=== PATIENT | male | born 1945 | race African-American/Black ===

== ENCOUNTER 2025-04-15 11:05 | Inpatient (IN) ==
[2025-04-15] MEDS ORDERED: KETAMINE HCL ONE ×2 (12:23)
[2025-04-15] MEDS ORDERED: PRECEDEX INJ VIAL ONE (12:23)
[2025-04-15] MEDS: OMNIPAQUE 350 mg/mL 50 mL BTL 50 ML ONE (14:44)
[2025-04-15] MEDS: OMNIPAQUE 350 mg/mL 100 mL BTL 100 ML ONE (14:44)
[2025-04-15 15:50] LABS: MEAN PLATELET VOLUME 7.5 fL (7.4-11.0); RED CELL DISTRIBUTION WIDTH 14.6 % (11.6-16.5)
[2025-04-15 15:54] VITALS: BMI 25.3
[2025-04-15] MEDS: LR 1,000 ML IV 1,000 ML IV SCH (15:58)
[2025-04-15 16:01] LABS: COR NA(FOR HYPERGLY) 140 mmol/L (136-145); CREATININE 1.25 mg/dL (0.70-1.30); eGFR NON BLACK RACES 59 (>60)
[2025-04-15] MEDS: OMNIPAQUE 350 mg/mL 100 mL BTL IVP ONE (17:05)
[2025-04-15] MEDS: OMNIPAQUE 350 mg/mL 50 mL BTL IVP ONE (17:05)
[2025-04-15] MEDS ORDERED: GLUCAGEN SC PRN (19:38)
--- NOTE | 2025-04-15 19:39 | CT ---
EXAM: CT ANGIOGRAM ABDOMEN AND PELVIS WITH BILATERAL LOWER EXTREMITY RUNOFF WITH AND WITHOUT CONTRAST (3D) HISTORY: occlusion to right lower extemity; COMPARISON: CTA dated February 22, 2025. TECHNIQUE: Axial CT images were obtained through the abdomen, pelvis, and bilateral lower extremities to the level of the toes both before after the intravenous administration of contrast. Coronal and sagittal reformatted images were included. 3D reconstructions were performed with concurrent physician supervision at a separate independent workstation and MIP images were also performed. All CT scans at this facility use dose modulation, iterative reconstruction, and/or weight based dosing when appropriate to reduce radiation dose to as low as reasonably achievable. FINDINGS: VASCULAR FINDINGS: Aorta is normal in course and caliber without evidence of aneurysm, dissection, or other acute pathology. Celiac, superior mesenteric, and renal arteries are all widely patent. Soft plaquing of the left common iliac artery producing less than 50% short-segment stenosis, stable finding. Right common iliac artery is patent. Mild atherosclerotic changes of each external iliac artery without significant stenosis. Right lower extremity: Atherosclerotic plaquing of the SURVEILLANCE DIRECTOR otherwise appears patent.. There has a stent along the entire course of the right SFA which is occluded, this is unchanged from the prior CTA. Right profunda femoris artery is patent. The right popliteal artery appears to be occluded and this is unchanged from the prior CTA. Tibioperoneal trunk appears to be occluded and this is unchanged from prior study. Anterior tibial artery is occluded along its entire length, unchanged from prior exam. Posterior tibial artery demonstrates flow to the just above the level of the ankle joint and then appears to be occluded, which is an interval change from the prior CTA, however there is evidence of flow within its distal branches at the level of the hindfoot. Peroneal artery demonstrates flow to the level of the ankle. Flow is not visualized within the dorsalis pedis artery, unchanged from the prior exam. Left lower extremity: Technical note: Note that the left knee arthroplasty produces streak artifact limiting some of the images through the level of the knee. Atherosclerotic plaquing of the SURVEILLANCE DIRECTOR otherwise appears patent. Redemonstrated is occlusion of the left SFA along its entire length. Redemonstrated is a bypass graft of the left SFA that is patent and ties into the distal left SFA which is also patent. Popliteal artery is patent. Tibioperoneal trunk is patent. Redemonstrated is occlusion of the anterior tibial artery. There is flow within the posterior tibial artery to the level of the ankle that continues into the level of the hindfoot. Peroneal artery appears patent to just above the level of the ankle, unchanged just above the ankle from prior. No flow is identified within the dorsalis pedis artery, unchanged from prior. NON VASCULAR FINDINGS: LOWER THORAX: Normal ABDOMEN: LIVER: Normal GALLBLADDER: Sludge or stones within the gallbladder lumen. No CT evidence that would suggest cholecystitis. SPLEEN: Normal PANCREAS: Normal KIDNEYS: Normal ADRENAL GLANDS: Normal GI TRACT: Normal course and caliber LYMPH NODES: No enlarged nodes PERITONEUM / RETROPERITONEUM: No free gas PELVIS: BLADDER: Normal GENITALS: Normal BONES: No evidence for acute osseous findings. IMPRESSION: Right lower extremity: Right posterior tibial artery demonstrates flow to the just above the level of the ankle joint and then appears to be occluded, which is an interval change from the prior CTA, however there is evidence of flow within its distal branches at the level of the hindfoot. Redemonstrated is occlusion of the right SFA and right popliteal artery. Redemonstrated is occlusion of the right anterior tibial artery. No evidence for flow within the right dorsalis pedis artery, unchanged from prior. Left lower extremity: Redemonstrated is occlusion of the left SFA along its entire length. Redemonstrated is a bypass graft of the left SFA that is patent and ties into the distal left SFA which is also patent. Redemonstrated is occlusion of the anterior tibial artery. There is flow within the left posterior tibial artery to the level of the ankle that continues into the hindfoot. Left peroneal artery appears patent to just above the level of the ankle, unchanged just above the ankle from prior. No flow is identified within the left dorsalis pedis artery, unchanged from prior. THIS IS AN ELECTRONICALLY VERIFIED FINAL REPORT 04/15/2025 7:36 PM - Electronically signed by Yan Rosas DO
[2025-04-15] MEDS ORDERED: SNACK - Diabetic Appropriate PO SCH (20:00)
[2025-04-15] MEDS: HIBICLENS WASH EXT ONE (20:58)
[2025-04-15] MEDS: ZETIA TAB 10 MG PO SCH (20:58)
[2025-04-15] MEDS: COLACE CAP 100 MG PO SCH (20:58)
[2025-04-15] MEDS: XALATAN EACHEYE SCH (20:58)
[2025-04-15] MEDS: CRESTOR TAB 10 MG PO SCH (20:58)
[2025-04-15] MEDS ORDERED: XARELTO PO SCH (21:00)
[2025-04-15] MEDS: LANTUS SC SCH (21:00)
[2025-04-15] MEDS: NORCO 5/325 MG TAB PO PRN (22:31)
[2025-04-16] MEDS: LOVENOX INJ 80 MG SYR SC ONE (00:11)
[2025-04-16 06:11] LABS: MEAN PLATELET VOLUME 6.8 fL (7.4-11.0); RED CELL DISTRIBUTION WIDTH 14.5 % (11.6-16.5)
[2025-04-16 06:24] LABS: COR CA(FOR HYPOALB) 10.1 mg/dL (8.5-10.1); COR NA(FOR HYPERGLY) 141 mmol/L (136-145); CREATININE 1.10 mg/dL (0.70-1.30); eGFR NON BLACK RACES > 60 (>60)
--- NOTE | 2025-04-16 08:06 | DR.H&P ---
H&P History & Physical for Day of: H&P Date: 04/15/25 Chief Complaint Chief Complaint: rest pain right leg History of Present Illness History of Present Illness: 79-year-old male with history of peripheral vascular disease who has a left femoral popliteal bypass graft that required intervention of the tibioperoneal trunk in the past. Patient has multiple stents of the right superficial femoral artery and last week underwent relining of all the stents with angioplasty of the right tibioperoneal trunk and angioplasty of takeoff of the right posterior tibial artery. Patient presented to the emergency room in [place], [place] complaining of pain and ultrasound was consistent with possible thrombosis of the knee but newly placed stents. Patient is supposed to be on blood thinner and aspirin I am unsure whether he is taking it. Patient is transferred here for care and CT angiogram shows occlusion/thrombosis of the right superficial femoral artery stents as well as the popliteal artery and the tibioperoneal trunk on the side. Past Medical History Past Medical History: Arthritis, Diabetes, Dyslipidemia and Hypertension Past Surgical History Surgical History: Ortho Surgery Family History Family Medical History: Diabetes Mellitus, Cancer and Coronary Artery Disease Social History Does patient currently use any type of tobacco product: No Alcohol Use: None Drug Use: None Medications Home Medications: Home Medications Medication Instructions Recorded Confirmed Type amlodipine 10 mg tablet 10 mg PO QDAY 04/15/2504/15 History aspirin 81 mg chewable tablet 81 mg PO QDAY 04/15/25 1 History castor oil 1 ea miscellaneous QHS 04/1504/15/25 History ezetimibe 10 mg tablet (Zetia) 10 mg PO QHS 04/15/25 1 History glucagon HCl 1 mg solution for 1 mg subcut Q20M PRN 04/15/25 History injection hydrocodone 5 mg-acetaminophen 325 2 tab PO TID 04/15/25 History mg tablet insulin glargine 100 unit/mL (3 35 unit subcut QHS 04/15/25 History mL) subcutaneous pen (Lantus Solostar U-100 Insulin) latanoprost 0.005 % eye drops 1 drp ophthalmic (eye) Q PM 04/15/25 04/15/25 History lidocaine 4 % topical patch 1 patch topical QDAY PRN 1 04/15/25 History (Lidocaine Pain Relief) lisinopril 20 mg tablet 20 mg PO QDAY 04/15/2504/15 History metformin 500 mg tablet 500 mg PO BID 04/15/2504/15 History metoprolol succinate 25 mg 25 mg PO QDAY 04/15/2503/28 History tablet,extended release 24 hr (Toprol XL) rivaroxaban 2.5 mg tablet (Xarelto) 2.5 mg PO BID 03/2804/15/25 History rosuvastatin 20 mg tablet 20 mg PO QHS 04/15/25 History semaglutide 0.25 mg or 0.5 mg (2 0.25 mg subcut QWEEK 04/15/25 04/15/25 History mg/1.5 mL) subcutaneous pen injector (Ozempic) Allergies Allergies Allergy/AdvReac Type Severity Reaction Status Date / Time codeine Allergy Verified 04/15/25 13:11 Labs 04/16/25 05:36 04/16/25 05:36 Labs: Laboratory WBC 9.0 X10^3/uL (3.6-10.0) 04/15/25 15:38 RBC 3.61 X10^6/uL (4.7-6.0) L 04/15/25 15:38 Hgb 12.1 g/dL (13.5-18.0) L 04/15/25 15:38 Hct 34.7 % (42.0-54.0) L 04/15/25 15:38 MCV 96.3 fL (80.0-100.0) 04/15/25 15:38 MCH 33.5 pg (27.0-34.0) 04/15/25 15:38 MCHC 34.8 g/dL (33.0-35.0) 04/15/25 15:38 RDW 14.6 % (11.6-16.5) 04/15/25 15:38 Plt Count 135 X10^3/uL (150.0-450.0) L 04/15/25 15:38 MPV 7.5 fL (7.4-11.0) 04/15/25 15:38 Neut % (Auto) 78.3 % (42.0-75.0) H 04/15/25 15:38 Lymph % (Auto) 15.7 % (21.0-51.0) L 04/15/25 15:38 [place] % (Auto) 5.3 % (0.0-13.0) 04/15/25 15:38 Eos % (Auto) 0.1 % (0.9-2.9) L 04/15/25 15:38 Baso % (Auto) 0.6 % (0.2-1.0) 04/15/25 15:38 Neut # (Auto) 7.0 x10^3/uL (2.2-4.8) H 04/15/25 15:38 Lymph # (Auto) 1.4 X10^3/uL (1.3-2.9) 04/15/25 15:38 [place] # (Auto) 0.5 x10^3/uL (0.3-0.8) 04/15/25 15:38 Eos # (Auto) 0.0 x10^3/uL (0.0-0.2) 04/15/25 15:38 Baso # (Auto) 0.1 X10^3/uL (0.0-0.1) 04/15/25 15:38 Absolute Nucleated RBC 0.1 /100WBC 04/15/25 15:38 Sodium 138 mmol/L (136-145) 04/15/25 15:38 Corrected Sodium 140 mmol/L (136-145) 04/15/25 15:38 Potassium 4.8 mmol/L (3.5-5.1) 04/15/25 15:38 Chloride 103 mmol/L (98-107) 04/15/25 15:38 Carbon Dioxide 22.7 mmol/L (21-32) 04/15/25 15:38 BUN 20 mg/dL (7-18) H 04/15/25 15:38 Creatinine 1.25 mg/dL (0.70-1.30) 04/15/25 15:38 Est GFR (MDRD) Af Amer > 60 (>60) 04/15/25 15:38 Est GFR (MDRD) Non-Af 59 (>60) 04/15/25 15:38 Glucose 174 mg/dL (65-99) H 04/15/25 15:38 POC Glucose (mg/dL) 159 mg/dL (65-99) H 04/15/25 19:32 Calcium 9.7 mg/dL (8.5-10.1) 04/15/25 15:38 Corrected Calcium TNP 04/15/25 15:38 Total Bilirubin 0.50 mg/dL (0.2-1.0) 04/15/25 15:38 AST 28 Units/L (15-37) 04/15/25 15:38 ALT 33 Units/L (12-78) 04/15/25 15:38 Alkaline Phosphatase 106 Units/L (46-116) 04/15/25 15:38 Total Protein 7.0 g/dL (6.4-8.2) 04/15/25 15:38 Albumin 3.6 g/dL (3.4-5.0) 04/15/25 15:38 Globulin 3.4 g/dL (2.5-4.5) 04/15/25 15:38 Albumin/Globulin Ratio 1.1 Ratio (1.1-2.1) 04/15/25 15:38 Review of Systems Constitutional: See HPI Eyes: No Symptoms Reported ENT: No Symptoms Reported Respiratory: No Symptoms Reported Cardiovascular: No Symptoms Reported Gastrointestinal: No Symptoms Reported Genitourinary: No Symptoms Reported Musculoskeletal: No Symptoms Reported Skin: No Symptoms Reported Neurological: No Symptoms Reported Physical Exam Vital Signs: Vital Signs Temperature 97.8 F Temperature 98.3 F Pulse Rate [Radial] 93 Pulse Rate [Radial] 86 Respiratory Rate 18 Respiratory Rate 18 Respiratory Rate 14 Blood Pressure [Right Arm] 126/61 Blood Pressure [Right Arm] 140/63 O2 Sat by Pulse Oximetry 100 O2 Sat by Pulse Oximetry 98 Oriented: Normal, Time, Person and Place Eyes: Normal Ear: Normal Nose: Normal Throat: Normal Respiratory: Clear Throughout Cardiovascular: Normal and Other (Palpable femoral pulses bilaterally. Absent pulses of the right ankle and foot. Patient moves the foot well on the right side. Good Doppler signals in the distal pulses of the left) : Normal Auscultation: Bowel Sounds: Normal Palpation: Normal Tenderness: Normal Skin: Normal Musculoskeletal: Normal Psychiatric: Normal Mood Description: Calm Affect: Normal Speech Pattern: Clear and Appropriate Assessment/Plan (1) Atherosclerosis of [place] arteries of extremities with rest pain, right leg: Status: Acute Plan: Patient started on therapeutic Lovenox. Patient will be taken the operating suite tomorrow for updated arteriogram and possible thrombectomy of the right superficial femoral artery stents, possible placement of thrombolytic catheter. (2) Atherosclerosis of [place] arteries of extremities with rest pain, left leg: Status: Acute Plan: Left leg is stable at this time (3) Type 2 diabetes mellitus without complications: Status: Acute Plan: Sliding scale insulin for now (4) Essential (primary) hypertension: Status: Acute Plan: Home medications (5) Hyperlipidemia: Status: Acute Plan: Home medications (6) Personal history of transient ischemic attack (TIA), and cerebral infarction without residual deficits: Status: Acute Plan: Stable Review H&P Reviewed: Yes Patient was examined?: Yes
[2025-04-16] MEDS: NORVASC TAB 10 MG PO SCH (08:36)
[2025-04-16] MEDS: ZESTRIL TAB 20 MG PO SCH (08:36)
[2025-04-16] MEDS: TOPROL XL PO SCH (08:36)
--- NOTE | 2025-04-16 09:26 | EKG ---
Test Reason : surgical clearance Blood Pressure : */* mmHG Vent. Rate : 82 BPM Atrial Rate : 82 BPM P-R Int : 114 ms QRS Dur : 88 ms QT Int : 388 ms P-R-T Axes : 31 -3 46 degrees QTc Int : 453 ms Normal sinus rhythm Normal ECG No previous ECGs available Confirmed by Jamari Fairchild MD ([id number]) on 04/17/2025 7:23:16 AM Referred By: Confirmed By: Jamari Fairchild MD
[2025-04-16] MEDS: ASPIRIN EC 81 MG PO SCH (10:53)
[2025-04-16] MEDS: FENTANYL VIAL INJ 100 mcg ONE (13:19)
[2025-04-16] MEDS: DIPRIVAN VIAL 20 ML ONE ×2 (13:19→15:11)
[2025-04-16] MEDS: OFIRMEV IV 1000 MG VIAL 1,000 MG/100 ML VIAL IV ONE (13:19)
[2025-04-16] MEDS: VERSED ONE (13:19)
[2025-04-16] MEDS: HEPARIN SODIUM INJ 5000 UNITS ONE (13:23)
[2025-04-16] MEDS: ZOFRAN INJ 4 MG VIAL ONE (13:23)
[2025-04-16] MEDS: ANCEF VIAL 1 GRAM ONE (13:55)
[2025-04-16] MEDS: NS 1,000 ML IV 1,000 ML ONE ×2 (13:55→15:37)
[2025-04-16] MEDS: NS 100 ML IV 100 ML ONE ×2 (13:56→15:51)
[2025-04-16] MEDS: NS 1,000 ML IV 700 ML IV PRN (14:17)
[2025-04-16] MEDS: VERSED IVP PRN (14:18)
[2025-04-16] MEDS: ZOFRAN INJ 4 MG VIAL IVP PRN (14:18)
[2025-04-16] MEDS: ANCEF VIAL 1 GRAM IV PRN (14:23)
[2025-04-16] MEDS: KETAMINE HCL IV PRN (14:25)
[2025-04-16] MEDS: PRECEDEX INJ VIAL IVP PRN (14:25)
[2025-04-16] MEDS: DIPRIVAN VIAL 250 ML IVP PRN (14:25)
[2025-04-16] MEDS: FENTANYL VIAL INJ 100 mcg IVP PRN (14:28)
[2025-04-16] MEDS: VISIPAQUE 100 ML ONE (14:44)
[2025-04-16] MEDS: HEPARIN 1,000 UNIT/500 ML-NS 3,000 UNIT/1,500 ML IV.SOLN ONE (14:44)
[2025-04-16] MEDS: MARCAINE 0.5% ONE (14:44)
[2025-04-16] MEDS: VISIPAQUE 50 ML ONE (14:44)
[2025-04-16] MEDS: OFIRMEV IV 1000 MG VIAL 1,000 MG/100 ML VIAL IV PRN (14:45)
[2025-04-16] MEDS: HEPARIN SODIUM INJ 5000 UNITS IVP PRN (14:48)
[2025-04-16] MEDS: NEO-SYNEPHRINE INJ IVP PRN (15:20)
[2025-04-16] MEDS: ACTIVASE CATHFLO ONE (15:35)
[2025-04-16] MEDS: ACTIVASE CATHFLO 12 MG in NS 250 ML IV 228 ML IV SCH (15:36)
[2025-04-16] MEDS: PATIENT'S HOME MEDICATION TOP SCH (15:51)
[2025-04-16] MEDS: ZESTRIL TAB 20 MG ONE (15:52)
[2025-04-16] MEDS: NEO-SYNEPHRINE INJ ONE (15:52)
--- NOTE | 2025-04-16 16:22 | OR.IMMED ---
IMMEDIATE POST-OP NOTE Immediate Post-Op Note Date of surgery/procedure: 04/16/25 Pre-Op Diagnosis: Thrombosis of right superficial femoral artery stents Post-Op Diagnosis: Same, see findings below Description of Procedure: Aortogram, arteriogram lower extremity, placement of EKOS catheter across all occluded right superficial femoral artery stents for 24 hours of tPA using EKOS device Surgeon/Construction Trench Digger: Luis Richey MD, FACS Findings: Occluded right superficial femoral artery stents. Peroneal artery now without opacification ,no good opacification of the posterior tibial artery, tibioperoneal trunk does opacify Estimated Blood Loss: <50 cc Complications: none Progress Notes: To CCU for continued tPA infusion using EKOS catheter
[2025-04-16] MEDS: ACTIVASE CATHFLO 12 MG in NS 250 ML IV 228 ML INTRACATH ONE ×2 (16:24→16:27)
[2025-04-16] MEDS: NS 500 ML IV 500 ML IV ONE (16:24)
[2025-04-16] MEDS: SNACK - Diabetic Appropriate PO SCH (16:48)
[2025-04-16] MEDS: PHARMACY CONSULT EKOS LOVENOX XX SCH (17:09)
[2025-04-16] MEDS: NS 500 ML IV 500 ML IV SCH (17:09)
[2025-04-16 17:26] LABS: MEAN PLATELET VOLUME 6.6 fL (7.4-11.0); RED CELL DISTRIBUTION WIDTH 14.5 % (11.6-16.5)
[2025-04-16] MEDS: DILAUDID INJ IVP PRN (17:27)
[2025-04-16] MEDS: LOVENOX INJ 80 MG SYR SC SCH (17:27)
[2025-04-16] MEDS: NovoLIN R (or HumuLIN R) SUBCUT PRN (20:47)
[2025-04-16 23:08] LABS: MEAN PLATELET VOLUME 6.4 fL (7.4-11.0); RED CELL DISTRIBUTION WIDTH 14.5 % (11.6-16.5)
[2025-04-17] MEDS ORDERED: LOVENOX INJ 80 MG SYR SC ONE
[2025-04-17 06:35] LABS: MEAN PLATELET VOLUME 6.7 fL (7.4-11.0); RED CELL DISTRIBUTION WIDTH 14.3 % (11.6-16.5)
[2025-04-17] MEDS: DILAUDID INJ IVP ONE (08:16)
[2025-04-17 11:07] LABS: MEAN PLATELET VOLUME 6.8 fL (7.4-11.0); RED CELL DISTRIBUTION WIDTH 13.8 % (11.6-16.5)
[2025-04-17] MEDS: ZESTRIL TAB 20 MG ONE (13:12)
[2025-04-17 16:54] LABS: MEAN PLATELET VOLUME 6.9 fL (7.4-11.0); RED CELL DISTRIBUTION WIDTH 14.6 % (11.6-16.5)
[2025-04-17] MEDS: GLUCOPHAGE PO SCH (17:18)
[2025-04-17] MEDS ORDERED: NORCO 5/325 MG TAB PO PRN (17:30)
[2025-04-17] MEDS: NS 1,000 ML IV 1,000 ML IV ONE (17:40)
--- NOTE | 2025-04-17 22:17 | NOTE.SOAP ---
Soap Note Note for Day of Date of Exam: 04/17/25 Subjective Data Subjective Data: Patient receiving tPA via EKOS and the right leg is warm. He has had some bleeding around the of the vascular sheath in the left groin and from needlesticks at the right ankle. tPA has now stopped over 24 hours and the bleeding has not decreased and nearly stopped. Hemoglobin now is 7.4 grams. He has been hemodynamically stable. Objective Data Temperature: 98.4 F Pulse Rate: 78 Respiratory Rate: 18 Blood Pressure: 107/53 O2 Sat by Pulse Oximetry: 99 Objective Data: Exam as above. Right foot is warm. Moves toes well. Assessment Assessment: Patient with thrombosis of right superficial femoral artery stents now being treated with tPA and local EKOS catheter. CT angiogram did show evidence of probable occlusion of the takeoff of the posterior tibial artery which is the only runoff to the foot. Plan Plan: Will plan to return to the operating tomorrow for on table arteriogram and appropriate treatment to include possible angioplasty possible stenting.
--- NOTE | 2025-04-18 01:55 | DR.OPNOTE ---
OP NOTE Pre-Op Diagnosis: Critical ischemia right leg Post-Op Diagnosis: Same, see final Procedure Date Date Of Procedure: 04/11/25 Procedure: PROCEDURE: Diagnostic aortogram, diagnostic arteriogram right leg, stenting of right superficial femoral artery occluded stents, stenting of right [place] distal superficial femoral artery occlusion and proximal popliteal artery occlusion, drug-coated balloon angioplasty of the right tibioperoneal trunk NARRATIVE: The patient was taken to the operative suite and placed in the supine position. The left groin and entire right leg were prepped and draped in sterile fashion. Patient was given intravenous sedation supervised by myself. Timeout for the procedure obtained. Ultrasound used to identify the femoral artery in the left groin and the skin overlying it infiltrated with 0.5% Marcaine. Ultrasound used to guide puncture of the left femoral artery and a 0.012 inch guidewire placed. Incision made over the guidewire at the skin edge with a #11 knife blade and the micro sheath placed over the guidewire into the femoral artery. Small wire exchanged for a 0.035 inch a Advantage Glidewire and the micro sheath exchanged for a 5 [place] vascular sheath. Patient given 5000 units of intravenous heparin. Omni catheter placed over the guidewire into the aorta and power injector used to perform aortogram showing normal aorta and iliac artery. The Omni catheter was then used to direct the guidewire down the right common iliac artery to the distal right external iliac artery. The Omni catheter exchanged for a [place] catheter and sequential arteriograms performed of the right leg showing complete occlusion of the right superficial femoral artery stents, occlusion of the distal right superficial femoral tangirnaq vessel and in the proximal popliteal artery tangirnaq vessel with reconstitution of the distal popliteal artery, occlusion of the right anterior tibial artery and occlusion of the right tibioperoneal trunk with runoff via the peroneal artery and posterior tibial artery. The [place] catheter removed and over the guidewire the 5 [place] sheath was exchanged for a 7 [place] Catpult Sheath which was parked in the distal right external iliac artery. [place] catheter and the 0.035 guidewire used to traverse the arteries of the right leg ultimately ending in right posterior tibial artery. This was selective catheterization. [place] catheter used to exchange 0.035 inch wire for a 0.014 inch [place] wire. Over the [place] wire we placed 3 [place] 6 mm 150 mm stents centimeter overlapeach by 3 mm across the occluded stents to the right superficial femoral artery. Then we placed an additional 6 mm x 60 mm stent over the distal occluded tangirnaq vessel right superficial femoral artery and proximal popliteal artery. Each drug-eluting stents were inflated with a 6 mm balloon. Then over the wire we placed a [place] [employer] [place] 4 mm x 100 mm drug-eluting balloon and inflated across the tibioperoneal trunk for 3 minutes. Follow up arteriogram showed excellent flow through the superficial artery stents and across the tibioperoneal trunk with good runoff via the peroneal artery and posterior tibial arteries Wires and devices removed from the [place] sheath. This sheath pulled back into the aorta and a 0.035 guidewire placed. [place] sheath exchanged over the wire for a Angio-Seal device used to close the puncture of the left femoral artery. Patient taken to same-day surgery in good condition. Type of Anesthesia: Local (0.5% Marcaine) Anesthesia Comment: Plus MAC Findings: Completely occluded stents of the right superficial femoral artery proximally and occlusion distal tangirnaq right superficial femoral artery and proximal [place]q popliteal artery, occluded anterior tibial artery. Occluded tibioperoneal trunk with reconstitution of the peroneal artery and posterior tibial artery Type of Fluids Used:: Lactated Ringers Total Amount of Fluid Infused:: 900cc Urine output: 400cc EBL: 100cc Complications:: none Needle/Sponge Count:: correct Disposition/Condition: Pt. tolerated procedure without difficulty. Taken to [facility] in stable condition.
[2025-04-18 04:56] LABS: MEAN PLATELET VOLUME 6.6 fL (7.4-11.0); RED CELL DISTRIBUTION WIDTH 19.0 % (11.6-16.5)
[2025-04-18] MEDS: HIBICLENS WASH EXT ONE (05:25)
[2025-04-18] MEDS: VERSED ONE (07:25)
[2025-04-18] MEDS: FENTANYL VIAL INJ 100 mcg ONE (07:25)
[2025-04-18] MEDS: PEPCID 20 MG VIAL ONE (07:26)
[2025-04-18] MEDS: REGLAN INJ 10 MG VIAL ONE (07:30)
[2025-04-18] MEDS: DECADRON INJ ONE (07:30)
[2025-04-18] MEDS: ZOFRAN INJ 4 MG VIAL ONE (07:30)
[2025-04-18] MEDS: XYLOCAINE 2 % (PLAIN) ONE (07:32)
[2025-04-18] MEDS: DIPRIVAN VIAL 20 ML ONE (07:34)
[2025-04-18] MEDS: PRECEDEX INJ VIAL ONE (07:35)
[2025-04-18] MEDS: NS 1,000 ML IV 500 ML IV PRN (07:45)
[2025-04-18] MEDS: ZOFRAN INJ 4 MG VIAL IVP PRN (07:51)
[2025-04-18] MEDS: NS 100 ML IV 100 ML ONE (07:54)
[2025-04-18] MEDS: PEPCID 20 MG VIAL IVP PRN (07:54)
[2025-04-18] MEDS: NS 1,000 ML IV 1,000 ML ONE ×2 (07:54→20:00)
[2025-04-18] MEDS: ANCEF VIAL 1 GRAM ONE (07:55)
[2025-04-18] MEDS: REGLAN INJ 10 MG VIAL IVP PRN (07:55)
[2025-04-18] MEDS: ANCEF VIAL 1 GRAM IV PRN (07:56)
[2025-04-18] MEDS: VERSED IVP PRN (08:04)
[2025-04-18] MEDS: FENTANYL VIAL INJ 100 mcg IVP PRN (08:05)
[2025-04-18] MEDS ORDERED: XYLOCAINE 2 % (PLAIN) PRN (08:07)
[2025-04-18] MEDS: KETAMINE HCL IVP PRN (08:07)
[2025-04-18] MEDS: PRECEDEX INJ VIAL IVP PRN (08:07)
[2025-04-18] MEDS: DIPRIVAN VIAL 100 ML IVP PRN (08:07)
[2025-04-18] MEDS: DECADRON INJ IVP PRN (08:11)
[2025-04-18] MEDS: OFIRMEV IV 1000 MG VIAL 1,000 MG/100 ML VIAL IV PRN (08:13)
[2025-04-18] MEDS: EPHEDRINE SULFATE INJ ONE (08:22)
[2025-04-18] MEDS: VISIPAQUE 100 ML ONE (08:24)
[2025-04-18] MEDS: MARCAINE 0.5% ONE (08:24)
[2025-04-18] MEDS: HEPARIN 1,000 UNIT/500 ML-NS 3,000 UNIT/1,500 ML IV.SOLN ONE (08:24)
[2025-04-18] MEDS: HEPARIN SODIUM INJ 5000 UNITS ONE (08:26)
[2025-04-18] MEDS ORDERED: HEPARIN SODIUM INJ 5000 UNITS IVP PRN (08:26)
[2025-04-18] MEDS: OFIRMEV IV 1000 MG VIAL 1,000 MG/100 ML VIAL IV ONE (08:36)
[2025-04-18] MEDS: NEO-SYNEPHRINE INJ ONE (08:40)
[2025-04-18] MEDS: ROBINUL ONE (08:43)
[2025-04-18] MEDS: ROBINUL IVP PRN (08:43)
[2025-04-18] MEDS: NEO-SYNEPHRINE INJ IVP PRN (08:46)
[2025-04-18] MEDS: EPHEDRINE SULFATE INJ IVP PRN (08:47)
--- NOTE | 2025-04-18 09:16 | OR.IMMED ---
IMMEDIATE POST-OP NOTE Immediate Post-Op Note Date of surgery/procedure: 04/18/25 Pre-Op Diagnosis: Patient has been undergoing EKOS thrombolysis of right superficial femoral artery stents Post-Op Diagnosis: Same, evidence of dissection at the distal end of the tibioperoneal trunk and diffuse disease of the peroneal artery now patent as is the posterior tibial artery now patent. Anterior tibial artery occluded after its takeoff in the midportion of the calf all superficial femoral artery stents now patent, Procedure: Removal of EKOS catheter, arteriogram right lower extremity, angioplasty right peroneal artery. Drug-coated balloon angioplasty t ibioperoneal Description of Procedure: dictated Surgeon/Machine Load Clerk: Kaiden Findings: Right superficial femoral artery stents now patent. Patient has patent peroneal artery with some distal disease and now the posterior is open with evidence of dissection or plaque in the distal aspect of the tibioperoneal trunk Estimated Blood Loss: < 50 CC Complications: NONE Progress Notes: Patient return to CCU. Will continue Asencio for now. Check lab work and follow his right leg. Continue anticoagulation.
[2025-04-18 12:58] LABS: COR NA(FOR HYPERGLY) 141 mmol/L (136-145); CREATININE 1.25 mg/dL (0.70-1.30); eGFR NON BLACK RACES 59 (>60)
--- NOTE | 2025-04-18 16:29 | DR.OPNOTE ---
OP NOTE Pre-Op Diagnosis: Critical ischemia right leg secondary to thrombosis of right SFS stents Post-Op Diagnosis: same, probable dissection at the distal right tibioperoneal trunk Procedure Date Date Of Procedure: 04/16/25 Procedure: PROCEDURE: Diagnostic aortogram, diagnostic arteriogram right leg, place EKOS catheter across all thrombosed right superficial femoral artery stents , accross occluded [place] popliteal artery and occluced right tibial peroneal trunk, ist day of observed directed EKOS thrombolysis. NARRATIVE: The patient was taken to the operative suite and placed in the supine position. The left groin and entire right leg were prepped and draped in sterile fashion. Patient was given intravenous sedation supervised by myself. Timeout for the procedure obtained. Ultrasound used to identify the femoral artery in the left groin and the skin overlying it infiltrated with 0.5% Marcaine. Ultrasound used to guide puncture of the left femoral artery and a 0.012 inch guidewire placed. Incision made over the guidewire at the skin edge with a #11 knife blade and the micro sheath placed over the guidewire into the femoral artery. Small wire exchanged for a 0.035 inch a Advantage Glidewire and the micro sheath exchanged for a 5 [place] vascular sheath. Patient given 5000 units of intravenous heparin. Omni catheter placed over the guidewire into the aorta and power injector used to perform aortogram showing normal aorta and normal iliac arteries by. The Omni catheter was then used to direct the guidewire down the right common iliac artery to the distal right external iliac artery. The Omni catheter exchanged for a [place] catheter and sequential arteriograms performed of the right leg showing complete occlusion/thrombosis of all the stents of the right superficial femoral artery with occlusion of the distal right [place] popliteal artery and the tibioperoneal trunk with occluded anterior tibial artery which is not new. Now the peroneal artery does not fill as it before and there is poor filling of the right posterior tibial artery. The [place] catheter removed and over the guidewire the 5 [place] sheath was exchanged for a 7 [place] Catpult Sheath which was parked in the distal right external iliac artery. [place] catheter and the 0.035 guidewire used to traverse the arteries of the right leg ultimately ending in the takeoff of the right peroneal artery. This was selective cztherization . [place] catheter removed and the outer cannula for the EKOS catheter placed over the 0.035 inch wire. Wire removed and the inner cannula placed through the sheath and secured. The sheath in the left groin and secured with a silk suture ligature and adhesive dressings applied over this. Patient given 4 mg of tPA as a bolus and started on 1 mg/h. This will be infused for 24 hours. Coolant port started at 30 cc an hour. Patient will be given therapeutic left Lovenox i.e. 80 mg SQ every 12 hours. Patient taken to CCU for care and continued TPA thrombolysis. Type of Anesthesia: Local (0.5% Marcaine) Anesthesia Comment: plus MAC Findings: Completely occluded right superficial femoral artery and the [place] right popliteal artery with evidence of nonopacification of the peroneal artery which had opacified in the past of and evidence of possible disease the takeoff of the right posterior tibial artery. Posterior tibial artery does go to the ankle Type of Fluids Used:: Lactated Ringers EBL: < 50 cc Complications:: none Needle/Sponge Count:: correct Disposition/Condition: Pt. tolerated procedure without difficulty. Taken to [facility] in stable condition.
--- NOTE | 2025-04-18 19:16 | DR.OPNOTE ---
OP NOTE Pre-Op Diagnosis: Thrombosis of the right superficial femoral artery stents Post-Op Diagnosis: Same, see findings. Resolved after 24 hours of EKOS thrombolysis Procedure Date Date Of Procedure: 04/18/25 Procedure: PROCEDURE: Removal of EKOS thrombolytic catheter, arteriogram of the right lower extremity, selective catheterization of the right peroneal artery, balloon angioplasty of the proximal right peroneal artery, drug-coated balloon angioplasty of the distal tibioperoneal trunk of the right leg NARRATIVE: The patient was taken to the operative suite and placed in supine position. The EKOS catheter was in the left groin. This was prepped and draped in sterile fashion as well as the entire right leg. Patient given IV sedation supervised by myself. Timeout for the procedure obtained. At the beginning of the case the EKOS catheter was removed from the inner sheath and exchanged for a 0.035 [employer] glidewire. Arteriogram through the large sheath in the right external iliac artery showed complete resolution of thrombus in all of the stents of the right superficial femoral artery as well al thrombus of the distal popliteal artery and thr tibioperoneal trunk. The peroneal artery now opacified all the way to the ankle and as did the posterior tibial artery. There appeared to be a plaque in the distal aspect of the tibioperoneal trunk that may have been occluding the peroneal artery and the posterior tibial munira ry earlier. The [employer] catheter the used to exchange 0.035 inch wire for a 0.014 inch wire. This wire was taken all the way down the peroneal artery. This was selective catheterization. Over this wire we placed a 3 mm x150 mm [employer] balloon and ballooned open the proximal portion of the peroneal artery inflating for 1 minute. This balloon removed and then we balloon dilated the distal tibioperoneal trunk with area of plaque with a [place] 4 mm x 60 mm drug-coated balloon inflated for 3 minutes. Post procedure arteriogram showed excellent flow through the peroneal artery and the posterior tibial artery all the way to the ankle. Patient had been given 5000 units of heparin to begin in the case. There was no reversal of the heparin with Protamine. The sheath in the left groin was pulled back under fluoroscopy into the aorta and a 0.035 inch wire placed. The catheter exchanged over the wire for an Angio-Seal device used to close the puncture of the left femoral artery. Patient had dressing applied and taken back to the CCU in good condition. Anesthesia Comment: MAC anesthesia Findings: All of the thrombus in the superficial femoral artery stents now resolved as well as the thrombus in the popliteal and tibioperoneal trunk with evidence now of opacification of the peroneal artery which is not present before and opacification of the posterior tibial artery was not present 4. Evidence of possible dissection in the distal aspect of the right tibioperoneal trunk. Type of Fluids Used:: Lactated Ringers Total Amount of Fluid Infused:: 500cc Urine output: 100cc EBL: <50 cc Complications:: none Needle/Sponge Count:: correct Disposition/Condition: Pt. tolerated procedure without difficulty. Taken to [facility] in stable condition.
[2025-04-18 19:18] LABS: MEAN PLATELET VOLUME 6.8 fL (7.4-11.0); RED CELL DISTRIBUTION WIDTH 19.8 % (11.6-16.5)
[2025-04-18] MEDS: GLUCOPHAGE ONE ×2 (19:59→20:02)
[2025-04-18] MEDS: NS 250 ML IV 250 ML IV ONE (20:00)
[2025-04-18] MEDS: ZESTRIL TAB 20 MG ONE (20:02)
[2025-04-18] MEDS: XARELTO PO SCH (21:11)
[2025-04-19 00:34] VITALS: TEMP 97.5
[2025-04-19] MEDS ORDERED: GLUCOPHAGE ONE (05:34)
[2025-04-19 05:56] LABS: MEAN PLATELET VOLUME 7.0 fL (7.4-11.0); RED CELL DISTRIBUTION WIDTH 19.2 % (11.6-16.5)
[2025-04-19 06:02] LABS: COR NA(FOR HYPERGLY) 143 mmol/L (136-145); CREATININE 1.39 mg/dL (0.70-1.30); eGFR NON BLACK RACES 52 (>60)
[2025-04-19 08:13] VITALS: BP 121/57; RESP 17
[2025-04-19] MEDS ORDERED: ZESTRIL TAB 20 MG ONE (08:53)
[2025-04-19 09:21] VITALS: PULSE 85; O2SAT 97
--- NOTE | 2025-04-19 11:34 | W.DIS.FURT ---
Summary of Discharge Discharge Summary of Date Date of Exam: 04/19/25 Admission Date Date of Admission: 04/15/25 Admission Diagnosis Hospital Course: This is a 79-year-old male who has had critical ischemia of the right lower extremity and the week before this admission had undergone relining of all the stents of the right superficial femoral artery and he presented back with pain in the right leg and CT angiogram showed the stents were now occluded/thrombosed. Patient was admitted, placed on Lovenox and the next day taken the operating suite where we placed an EKOS catheter for 24 hours of directed thrombolysis. He did well and the foot warmed up and his pain redlieved .He was taken back to the operating suite on April 18 where he underwent repeat arteriogram showing all of the clot to be lysed. There was evidence of dissection of the distal part of the tibioperoneal trunk extending down into the peroneal artery. This was ballooned open and had good flow to the foot. Patient continues to have good Doppler signal in the posterior tibial artery. He will be discharged back to the [facility] nurse and acility continue all his home medications including aspirin and Xrelto . He will follow-up with me in 1 week Vital Signs: Vital Signs (72 hours) 04/16/25 12:00 04/16/25 13:46 04/16/25 16:08 Temperature 97.4 F L 98.5 F 98.4 F Pulse Rate 80 64 Pulse Rate [Radial] 78 Respiratory Rate 18 16 15 Blood Pressure 119/69 Blood Pressure [Left Arm] Blood Pressure [Right Arm] 132/60 O2 Sat by Pulse Oximetry 99 97 100 Oxygen Delivery Method Room Air Room Air Oxygen Flow Rate 04/16/25 16:15 04/16/25 16:16 04/16/25 16:30 Temperature Pulse Rate 67 68 79 Pulse Rate [Radial] Respiratory Rate 16 13 26 H Blood Pressure 117/52 120/56 Blood Pressure [Left Arm] Blood Pressure [Right Arm] O2 Sat by Pulse Oximetry 100 100 100 Oxygen Delivery Method Oxygen Flow Rate 04/16/25 16:31 04/16/25 16:45 04/16/25 16:55 Temperature Pulse Rate 79 79 Pulse Rate [Radial] Respiratory Rate 28 H 20 20 Blood Pressure Blood Pressure [Left Arm] Blood Pressure [Right Arm] O2 Sat by Pulse Oximetry 100 99 Oxygen Delivery Method Oxygen Flow Rate 04/16/25 17:00 04/16/25 17:00 04/16/25 17:10 Temperature Pulse Rate 75 Pulse Rate [Radial] Respiratory Rate Blood Pressure 130/60 Blood Pressure [Left Arm] Blood Pressure [Right Arm] O2 Sat by Pulse Oximetry 100 Oxygen Delivery Method Nasal Cannula Oxygen Flow Rate 2 04/16/25 17:15 04/16/25 17:27 04/16/25 17:30 Temperature Pulse Rate 82 86 Pulse Rate [Radial] Respiratory Rate 20 Blood Pressure Blood Pressure [Left Arm] Blood Pressure [Right Arm] O2 Sat by Pulse Oximetry 100 99 Oxygen Delivery Method Oxygen Flow Rate 04/16/25 17:45 04/16/25 17:55 04/16/25 17:57 Temperature Pulse Rate 82 Pulse Rate [Radial] Respiratory Rate 22 20 20 Blood Pressure Blood Pressure [Left Arm] Blood Pressure [Right Arm] O2 Sat by Pulse Oximetry 99 Oxygen Delivery Method Oxygen Flow Rate 04/16/25 18:00 04/16/25 18:01 04/16/25 18:01 Temperature Pulse Rate 87 88 Pulse Rate [Radial] Respiratory Rate 35 H 38 H Blood Pressure 118/65 Blood Pressure [Left Arm] Blood Pressure [Right Arm] O2 Sat by Pulse Oximetry 93 L 98 Oxygen Delivery Method Oxygen Flow Rate 04/16/25 18:45 04/16/25 19:00 04/16/25 19:00 Temperature 98.4 F Pulse Rate 78 80 Pulse Rate [Radial] Respiratory Rate 18 12 Blood Pressure 116/58 116/58 Blood Pressure [Left Arm] Blood Pressure [Right Arm] O2 Sat by Pulse Oximetry 96 100 Oxygen Delivery Method Room Air Room Air Room Air Oxygen Flow Rate 04/16/25 19:45 04/16/25 19:46 04/16/25 19:47 Temperature 97.5 F L Pulse Rate 78 77 Pulse Rate [Radial] Respiratory Rate 14 Blood Pressure 112/59 Blood Pressure [Left Arm] Blood Pressure [Right Arm] O2 Sat by Pulse Oximetry 98 100 Oxygen Delivery Method Room Air Room Air Oxygen Flow Rate 04/16/25 20:00 04/16/25 20:45 04/16/25 22:00 Temperature 98.6 F 98.6 F Pulse Rate 79 77 69 Pulse Rate [Radial] Respiratory Rate 15 24 16 Blood Pressure 100/59 109/57 115/59 Blood Pressure [Left Arm] Blood Pressure [Right Arm] O2 Sat by Pulse Oximetry 97 96 96 Oxygen Delivery Method Room Air Room Air Room Air Oxygen Flow Rate 04/16/25 23:00 04/17/25 00:00 04/17/25 01:00 Temperature 98.5 F Pulse Rate 71 78 82 Pulse Rate [Radial] Respiratory Rate 16 18 18 Blood Pressure 123/57 116/56 134/60 Blood Pressure [Left Arm] Blood Pressure [Right Arm] O2 Sat by Pulse Oximetry 99 98 98 Oxygen Delivery Method Room Air Room Air Room Air Oxygen Flow Rate 04/17/25 02:00 04/17/25 03:00 04/17/25 04:00 Temperature 98.6 F Pulse Rate 92 H 93 H 93 H Pulse Rate [Radial] Respiratory Rate 25 H 21 21 Blood Pressure 126/58 139/65 141/61 Blood Pressure [Left Arm] Blood Pressure [Right Arm] O2 Sat by Pulse Oximetry 98 100 96 Oxygen Delivery Method Room Air Room Air Room Air Oxygen Flow Rate 04/17/25 04:26 04/17/25 05:00 04/17/25 05:26 Temperature Pulse Rate 84 Pulse Rate [Radial] Respiratory Rate 21 21 20 Blood Pressure 111/56 Blood Pressure [Left Arm] Blood Pressure [Right Arm] O2 Sat by Pulse Oximetry 97 Oxygen Delivery Method Room Air Oxygen Flow Rate 04/17/25 06:00 04/17/25 07:00 04/17/25 07:00 Temperature 98.2 F Pulse Rate 94 H 98 H Pulse Rate [Radial] Respiratory Rate 21 24 Blood Pressure 101/57 115/93 Blood Pressure [Left Arm] Blood Pressure [Right Arm] O2 Sat by Pulse Oximetry 100 98 Oxygen Delivery Method Room Air Room Air Room Air Oxygen Flow Rate 04/17/25 07:05 04/17/25 07:20 04/17/25 07:50 Temperature Pulse Rate Pulse Rate [Radial] Respiratory Rate 21 21 Blood Pressure Blood Pressure [Left Arm] Blood Pressure [Right Arm] O2 Sat by Pulse Oximetry Oxygen Delivery Method Room Air Oxygen Flow Rate 04/17/25 08:00 04/17/25 08:16 04/17/25 09:00 Temperature 98.2 F Pulse Rate 97 H 92 H Pulse Rate [Radial] Respiratory Rate 16 24 20 Blood Pressure 120/61 108/57 Blood Pressure [Left Arm] Blood Pressure [Right Arm] O2 Sat by Pulse Oximetry 97 93 L Oxygen Delivery Method Room Air Room Air Oxygen Flow Rate 04/17/25 10:00 04/17/25 11:00 04/17/25 12:00 Temperature 98.3 F Pulse Rate 102 H 90 92 H Pulse Rate [Radial] Respiratory Rate 23 16 18 Blood Pressure 117/56 123/59 132/60 Blood Pressure [Left Arm] Blood Pressure [Right Arm] O2 Sat by Pulse Oximetry 97 97 97 Oxygen Delivery Method Room Air Room Air Room Air Oxygen Flow Rate 04/17/25 12:01 04/17/25 12:31 04/17/25 13:00 Temperature Pulse Rate 88 Pulse Rate [Radial] Respiratory Rate 19 19 21 Blood Pressure 127/86 Blood Pressure [Left Arm] Blood Pressure [Right Arm] O2 Sat by Pulse Oximetry 98 Oxygen Delivery Method Room Air Oxygen Flow Rate 04/17/25 14:00 04/17/25 14:11 04/17/25 15:00 Temperature Pulse Rate 99 H 83 Pulse Rate [Radial] Respiratory Rate 21 21 17 Blood Pressure 138/70 84/51 Blood Pressure [Left Arm] Blood Pressure [Right Arm] O2 Sat by Pulse Oximetry 99 98 Oxygen Delivery Method Room Air Room Air Oxygen Flow Rate 04/17/25 15:11 04/17/25 16:00 04/17/25 17:00 Temperature 97.6 F Pulse Rate 86 84 Pulse Rate [Radial] Respiratory Rate 21 20 17 Blood Pressure 81/59 96/56 Blood Pressure [Left Arm] Blood Pressure [Right Arm] O2 Sat by Pulse Oximetry 100 99 Oxygen Delivery Method Room Air Room Air Oxygen Flow Rate 04/17/25 17:16 04/17/25 17:46 04/17/25 18:00 Temperature Pulse Rate 83 Pulse Rate [Radial] Respiratory Rate 21 21 18 Blood Pressure 98/58 Blood Pressure [Left Arm] Blood Pressure [Right Arm] O2 Sat by Pulse Oximetry 99 Oxygen Delivery Method Room Air Oxygen Flow Rate 04/17/25 19:00 04/17/25 19:00 04/17/25 20:00 Temperature 99.1 F Pulse Rate 80 78 Pulse Rate [Radial] Respiratory Rate 17 17 Blood Pressure 96/52 99/58 Blood Pressure [Left Arm] Blood Pressure [Right Arm] O2 Sat by Pulse Oximetry 99 98 Oxygen Delivery Method Room Air Room Air Room Air Oxygen Flow Rate 04/17/25 20:30 04/17/25 21:00 04/17/25 22:00 Temperature 98.4 F Pulse Rate 79 Pulse Rate [Radial] Respiratory Rate 18 16 Blood Pressure 107/53 106/53 Blood Pressure [Left Arm] Blood Pressure [Right Arm] O2 Sat by Pulse Oximetry 99 100 Oxygen Delivery Method Room Air Room Air Room Air Oxygen Flow Rate 04/17/25 22:16 04/17/25 23:00 04/18/25 00:00 Temperature 98.4 F 98.4 F Pulse Rate 78 75 79 Pulse Rate [Radial] Respiratory Rate 18 15 23 Blood Pressure 107/53 105/53 119/59 Blood Pressure [Left Arm] Blood Pressure [Right Arm] O2 Sat by Pulse Oximetry 99 98 99 Oxygen Delivery Method Room Air Room Air Oxygen Flow Rate 04/18/25 01:00 04/18/25 02:00 04/18/25 03:00 Temperature Pulse Rate 78 80 77 Pulse Rate [Radial] Respiratory Rate 23 19 18 Blood Pressure 117/57 114/53 110/55 Blood Pressure [Left Arm] Blood Pressure [Right Arm] O2 Sat by Pulse Oximetry 96 97 99 Oxygen Delivery Method Room Air Room Air Room Air Oxygen Flow Rate 04/18/25 03:35 04/18/25 04:00 04/18/25 04:05 Temperature 98.1 F Pulse Rate 84 Pulse Rate [Radial] Respiratory Rate 20 24 20 Blood Pressure 99/54 Blood Pressure [Left Arm] Blood Pressure [Right Arm] O2 Sat by Pulse Oximetry 97 Oxygen Delivery Method Room Air Oxygen Flow Rate 04/18/25 05:00 04/18/25 06:00 04/18/25 07:00 Temperature Pulse Rate 76 79 Pulse Rate [Radial] Respiratory Rate 17 18 Blood Pressure 103/54 149/63 Blood Pressure [Left Arm] Blood Pressure [Right Arm] O2 Sat by Pulse Oximetry 98 97 Oxygen Delivery Method Room Air Room Air Room Air Oxygen Flow Rate 04/18/25 07:00 04/18/25 07:10 04/18/25 07:45 Temperature 98.7 F Pulse Rate 81 76 Pulse Rate [Radial] Respiratory Rate 18 16 Blood Pressure 120/58 137/69 Blood Pressure [Left Arm] Blood Pressure [Right Arm] O2 Sat by Pulse Oximetry 96 94 L Oxygen Delivery Method Room Air Room Air Nasal Cannula Oxygen Flow Rate 04/18/25 09:15 04/18/25 09:30 04/18/25 09:45 Temperature 98.7 F Pulse Rate Pulse Rate [Radial] 100 H 97 H 97 H Respiratory Rate 18 17 16 Blood Pressure Blood Pressure [Left Arm] Blood Pressure [Right Arm] 125/73 96/53 96/54 O2 Sat by Pulse Oximetry 92 L 96 96 Oxygen Delivery Method Oxygen Flow Rate 04/18/25 10:00 04/18/25 10:15 04/18/25 11:00 Temperature Pulse Rate Pulse Rate [Radial] 94 H 92 H 99 H Respiratory Rate 15 15 16 Blood Pressure Blood Pressure [Left Arm] Blood Pressure [Right Arm] 95/50 105/54 105/58 O2 Sat by Pulse Oximetry 96 96 97 Oxygen Delivery Method Oxygen Flow Rate 04/18/25 11:15 04/18/25 12:00 04/18/25 12:00 Temperature 97.4 F L 97.4 F L 97.4 F L Pulse Rate 92 H Pulse Rate [Radial] 92 H Respiratory Rate 16 20 Blood Pressure 116/54 Blood Pressure [Left Arm] Blood Pressure [Right Arm] 116/54 O2 Sat by Pulse Oximetry 93 L 93 L Oxygen Delivery Method Room Air Oxygen Flow Rate 04/18/25 13:00 04/18/25 14:00 04/18/25 15:00 Temperature Pulse Rate 92 H 81 96 H Pulse Rate [Radial] Respiratory Rate 20 17 26 H Blood Pressure 116/54 94/54 121/57 Blood Pressure [Left Arm] Blood Pressure [Right Arm] O2 Sat by Pulse Oximetry 93 L 99 100 Oxygen Delivery Method Room Air Room Air Room Air Oxygen Flow Rate 04/18/25 16:00 04/18/25 19:00 04/18/25 19:59 Temperature 97.7 F 98.6 F Pulse Rate 86 Pulse Rate [Radial] 91 H Respiratory Rate 18 20 Blood Pressure 116/58 Blood Pressure [Left Arm] 119/59 Blood Pressure [Right Arm] O2 Sat by Pulse Oximetry 99 97 Oxygen Delivery Method Room Air Room Air Room Air Oxygen Flow Rate 04/19/25 00:00 04/19/25 04:00 04/19/25 07:00 Temperature 97.5 F L 97.5 F L Pulse Rate Pulse Rate [Radial] 76 75 Respiratory Rate 18 16 Blood Pressure Blood Pressure [Left Arm] 116/55 136/62 Blood Pressure [Right Arm] O2 Sat by Pulse Oximetry 95 100 Oxygen Delivery Method Room Air Room Air Room Air Oxygen Flow Rate 04/19/25 08:00 04/19/25 09:20 Temperature 97.5 F L Pulse Rate 85 Pulse Rate [Radial] 84 Respiratory Rate 17 Blood Pressure Blood Pressure [Left Arm] 121/57 Blood Pressure [Right Arm] O2 Sat by Pulse Oximetry 94 L 97 Oxygen Delivery Method Room Air Oxygen Flow Rate Labs: Laboratory Last Values WBC 5.0 X10^3/uL (3.6-10.0) 04/19/25 05:28 RBC 2.88 X10^6/uL (4.7-6.0) L 04/19/25 05:28 Hgb 9.0 g/dL (13.5-18.0) L 04/19/25 05:28 Hct 25.2 % (42.0-54.0) L 04/19/25 05:28 MCV 87.5 fL (80.0-100.0) 04/19/25 05:28 MCH 31.1 pg (27.0-34.0) 04/19/25 05:28 MCHC 35.5 g/dL (33.0-35.0) H 04/19/25 05:28 RDW 19.2 % (11.6-16.5) H 04/19/25 05:28 Plt Count 135 X10^3/uL (150.0-450.0) L 04/19/25 05:28 MPV 7.0 fL (7.4-11.0) L 04/19/25 05:28 Neut % (Auto) 70.9 % (42.0-75.0) 04/19/25 05:28 Lymph % (Auto) 15.6 % (21.0-51.0) L 04/19/25 05:28 [place] % (Auto) 11.7 % (0.0-13.0) 04/19/25 05:28 Eos % (Auto) 0.1 % (0.9-2.9) L 04/19/25 05:28 Baso % (Auto) 1.7 % (0.2-1.0) H 04/19/25 05:28 Neut # (Auto) 3.6 x10^3/uL (2.2-4.8) 04/19/25 05:28 Lymph # (Auto) 0.8 X10^3/uL (1.3-2.9) L 04/19/25 05:28 [place] # (Auto) 0.6 x10^3/uL (0.3-0.8) 04/19/25 05:28 Eos # (Auto) 0.0 x10^3/uL (0.0-0.2) 04/19/25 05:28 Baso # (Auto) 0.1 X10^3/uL (0.0-0.1) 04/19/25 05:28 Absolute Nucleated RBC 0.0 /100WBC 04/19/25 05:28 APTT 38.8 SECONDS (22.9-36.5) H 04/18/25 04:34 PTT Comment - 04/18/25 04:34 Fibrinogen 175 mg/dL (239-489) L 04/18/25 04:34 Sodium 139 mmol/L (136-145) 04/19/25 05:28 Corrected Sodium 143 mmol/L (136-145) 04/19/25 05:28 Potassium 4.1 mmol/L (3.5-5.1) 04/19/25 05:28 Chloride 106 mmol/L (98-107) 04/19/25 05:28 Carbon Dioxide 25.2 mmol/L (21-32) 04/19/25 05:28 BUN 23 mg/dL (7-18) H 04/19/25 05:28 Creatinine 1.39 mg/dL (0.70-1.30) H 04/19/25 05:28 Est GFR (MDRD) Af Amer > 60 (>60) 04/19/25 05:28 Est GFR (MDRD) Non-Af 52 (>60) L 04/19/25 05:28 Glucose 249 mg/dL (65-99) H 04/19/25 05:28 POC Glucose (mg/dL) 228 mg/dL (65-99) H 04/19/25 05:12 Calcium 8.2 mg/dL (8.5-10.1) L 04/19/25 05:28 Corrected Calcium 10.1 mg/dL (8.5-10.1) 04/16/25 05:36 Total Bilirubin 0.40 mg/dL (0.2-1.0) 04/16/25 05:36 AST 39 Units/L (15-37) H 04/16/25 05:36 ALT 37 Units/L (12-78) 04/16/25 05:36 Alkaline Phosphatase 85 Units/L (46-116) 04/16/25 05:36 Total Protein 5.5 g/dL (6.4-8.2) L 04/16/25 05:36 Albumin 2.7 g/dL (3.4-5.0) L 04/16/25 05:36 Globulin 2.8 g/dL (2.5-4.5) 04/16/25 05:36 Albumin/Globulin Ratio 1.0 Ratio (1.1-2.1) L 04/16/25 05:36 Blood Type O POSITIVE 04/16/25 14:46 Antibody Screen Negative 04/16/25 14:46 Crossmatch See Detail 04/16/25 14:46 Reason For Visit: EKOS,VASCULAR OCCLUSION RIGHT LOWER EXTREMITY Discharge Date Discharge Date: 04/19/25 Discharge Diagnosis All Active Problems (Updated 04/16/25 @ 08:04 by Drew Richey) Personal history of transient ischemic attack (TIA), and cerebral infarction without residual deficits (Acute) Hyperlipidemia (Acute) Essential (primary) hypertension (Acute) Type 2 diabetes mellitus without complications (Acute) Atherosclerosis of [place] arteries of extremities with rest pain, left leg (Acute) Atherosclerosis of [place] arteries of extremities with rest pain, right leg (Acute) Plan of Treatment: Continue with present treatment and follow up plan. Pt is to keep follow up appointment as instructed and take medications as ordered. Discharge Medications Discharge Medications: codeine Allergy (Verified 04/15/25 13:11) CONTINUE taking the following medications amlodipine 10 mg tablet 10 mg PO QDAY 04/15/25 [History] aspirin 81 mg chewable tablet 81 mg PO QDAY 04/15/25 [History] castor oil 1 ea miscellaneous QHS 04/15/25 [History] ezetimibe 10 mg tablet (Zetia) 10 mg PO QHS 04/15/25 [History] glucagon HCl 1 mg solution for injection 1 mg subcut Q20M PRN 04/15/25 [History] hydrocodone 5 mg-acetaminophen 325 mg tablet 2 tab PO TID 04/15/25 [History] insulin glargine 100 unit/mL (3 mL) subcutaneous pen (Lantus Solostar U-100 Insulin) 35 unit subcut QHS 04/15/25 [History] latanoprost 0.005 % eye drops 1 drp ophthalmic (eye) QPM 04/15/25 [History] lidocaine 4 % topical patch (Lidocaine Pain Relief) 1 patch topical QDAY PRN 04/15/25 [History] lisinopril 20 mg tablet 20 mg PO QDAY 04/15/25 [History] metformin 500 mg tablet 500 mg PO BID 04/15/25 [History] metoprolol succinate 25 mg tablet,extended release 24 hr (Toprol XL) 25 mg PO QDAY 04/15/25 [History] rivaroxaban 2.5 mg tablet (Xarelto) 2.5 mg PO BID 04/15/25 [History] rosuvastatin 20 mg tablet 20 mg PO QHS 04/15/25 [History] semaglutide 0.25 mg or 0.5 mg (2 mg/1.5 mL) subcutaneous pen injector (Ozempic) 0.25 mg subcut QWEEK 04/15/25 [History] Discharge Disposition Assessment: No distress noted. Discharge Plan Discharge Plan Hospital Course: This is a 79-year-old male who has had critical ischemia of the right lower extremity and the week before this admission had undergone relining of all the stents of the right superficial femoral artery and he presented back with pain in the right leg and CT angiogram showed the stents were now occluded/thrombosed. Patient was admitted, placed on Lovenox and the next day taken the operating suite where we placed an EKOS catheter for 24 hours of directed thrombolysis. He did well and the foot warmed up and his pain redlieved .He was taken back to the operating suite on April 18 where he underwent repeat arteriogram showing all of the clot to be lysed. There was evidence of dissection of the distal part of the tibioperoneal trunk extending down into the peroneal artery. This was ballooned open and had good flow to the foot. Patient continues to have good Doppler signal in the posterior tibial artery. He will be discharged back to the skilled nurse f and acility continue all his home medications including aspirin and Xrelto . He will follow-up with me in 1 week Patient Disposition: SNF Condition: Stable Health Concerns: Post Hospitalization: new medications and changes needed to prevent readmission or further decline. Pt educated and given instructions on all concerns. Care Plan Goals: Problem: Altered Tissue Perfusion Goal: Adequate Tissue Perfusion Instructions: Follow provided instructions. Follow up with primary physician as directed. Contact primary care physician or report to the closest Emergency Room if condition worsens. Plan of Treatment: Continue with present treatment and follow up plan. Pt is to keep follow up appointment as instructed and take medications as ordered. Assessment: No distress noted. Prescription drug monitoring program results: PDMP was not reviewed Prescriptions: No Action amlodipine 10 mg Tablet 10 mg PO QDAY aspirin 81 mg Tablet,Chewable 81 mg PO QDAY castor oil Oil 1 ea MISCELLANEOUS QHS Rx Instructions: Apply to bilateral feet topically at bedtime for dry skin glucagon HCl 1 mg Recon Soln 1 mg SUBCUT Q20M PRN Rx Instructions: Inject 1 ml IM as needed for low blood sugar finger stick. Blood sugar less than 60 and resident is unresponsive, notify MD, may pull from [facility]. Una blood sugar in 10 minutes. latanoprost 0.005 % Drops 1 drp OPHTHALMIC (EYE) QPM Rx Instructions: Instill one drop both eyes at bedtime for glaucoma hydrocodone-acetaminophen 5-325 mg Tablet 2 tab PO TID insulin glargine [Lantus Solostar U-100 Insulin] 100 unit/mL (3 mL) Insulin Pen 35 unit SUBCUT QHS metformin 500 mg Tablet 500 mg PO BID lidocaine [Lidocaine Pain Relief] 4 % Adhesive Patch,Medicated 1 patch TOPICAL QDAY PRN Rx Instructions: Apply to left knee one time a day for pain. Remove after 12 hours for 12 hour patch free period. lisinopril 20 mg Tablet 20 mg PO QDAY metoprolol succinate [Toprol XL] 25 mg Tablet Extended Release 24 Hr 25 mg PO QDAY ezetimibe [Zetia] 10 mg Tablet 10 mg PO QHS rosuvastatin 20 mg Tablet 20 mg PO QHS Ozempic 0.25 mg or 0.5 mg(2 mg/1.5 mL) Pen Injector 0.25 mg SUBCUT QWEEK Rx Instructions: Inject 0.25mg SQ one time a day every Tuesday r/t DMT2 rivaroxaban [Xarelto] 2.5 mg Tablet 2.5 mg PO BID Orders to Discharge Patient Discharge Orders: Discharge (Routine); Ordered 04/19/25 Ordered By: Drew Richey Follow ups/Referrals Follow ups/Referrals: JOSE DAVID MANCIA [Primary Care Provider, Unknown] - 1 WEEK Kaiden,Drew [STAFF PHYSICIAN, Unknown] - 04/29/25 1:45 pm Instructions Instructions: Angiogram, [id number], Leg Pain That Comes and Goes (Intermittent Claudication): What to Know, Endovascular Therapy for Peripheral Vascular Disease: What to Know After, Catheter-Directed Thrombolysis, Care After Stand Alone Forms: Find Help Web Site, Post Hospital Follow Up Care Print Language: FAROESE
== END 2025-04-19 10:55 | DRG 279 ==
LOC: ICU → MED/SURG
PROVIDERS: ADMIT Surgery; ATTEND Surgery
DX: E78.5 Hyperlipidemia, unspecified; I10 Essential (primary) hypertension; Z01.810 Encounter for preprocedural cardiovascular examination; E11.65 Type 2 diabetes mellitus with hyperglycemia; I70.223 Atherosclerosis of native arteries of extremities with rest pain, bilateral legs; D64.89 Other specified anemias; R79.1 Abnormal coagulation profile; Z79.4 Long term (current) use of insulin; Z86.73 Personal history of transient ischemic attack (TIA), and cerebral infarction without residual deficits

== ENCOUNTER 2025-05-28 11:22 | Inpatient (IN) ==
[2025-05-28] MEDS ORDERED: XYLOCAINE 2 % (PLAIN) ONE (12:11)
[2025-05-28] MEDS ORDERED: PRECEDEX INJ VIAL ONE (12:11)
[2025-05-28 13:48] VITALS: BMI 23.1
--- NOTE | 2025-05-28 17:48 | DR.H&P ---
H&P History & Physical for Day of: H&P Date: 05/28/25 Chief Complaint Chief Complaint: Complaint of rest pain right leg . History of Present Illness History of Present Illness: This is an a 79-year-old male patient with history of diabetes ,hypertension, hyperlipidemia and history of stroke with no residual who has significant peripheral vascular disease he has had a left femoral popliteal bypass in the past( not done by me) which required intervention by me with atherectomy and balloon angioplasty of the 80% stenosis of the left tibioperoneal trunk and complete occlusion of the left anterior tibial artery . The left leg con ti nues to do well he has had a left knee replacement without difficulty. The right leg has required 2 other interventions and most recently on April 16 and he had placement EKOS catheter via the left groin with EKOS thrombolysis and subsequent balloon angioplasty of the proximal right peroneal artery and drug-coatedballoon angioplasty of the distal tibioperoneal trunk of the right leg. Patient has not seen me in follow-up since his procedure done on April 18 and has missed 1 appointment. He had recent admission to the hospital in [facility] for severe dehydration now complains of significant rest pain of the right foot with some early ischemic changes medially of the right great toe. He has a well-healed left transmetatarsal amputation. He claims to have been taking his Xarelto and aspirin. Past Medical History Past Medical History: Arthritis, CVA (hisroy of CVA with no residual neurological deficit. ), Diabetes, Dyslipidemia and Hypertension Past Surgical History Surgical History: Ortho Surgery (left knee replacement ) Family History Family Medical History: Diabetes Mellitus, Cancer and Coronary Artery Disease Social History Does patient currently use any type of tobacco product: No Type of Tobacco Use: None Does any household member use tobacco: No Alcohol Use: None Drug Use: None Medications Home Medications: Home Medications Medication Instructions Recorded Confirmed Type amlodipine 10 mg tablet 10 mg PO QDAY 04/15/2505/28 History aspirin 81 mg chewable tablet 81 mg PO QDAY 04/15/25 1 07/29/24 History ezetimibe 10 mg tablet (Zetia) 10 mg PO QHS 04/15/25 1 07/29/24 History glucagon HCl 1 mg solution for 1 mg subcut Q20M PRN 05/28/25 History injection hydrocodone 5 mg-acetaminophen 325 2 tab PO TID 05/28/25 History mg tablet insulin glargine 100 unit/mL (3 35 unit subcut QHS 05/28/25 History mL) subcutaneous pen (Lantus Solostar U-100 Insulin) latanoprost 0.005 % eye drops 1 drp ophthalmic (eye) Q PM 04/15/25 05/28/25 History lidocaine 4 % topical patch 1 patch topical QDAY PRN 1 05/28/25 History (Lidocaine Pain Relief) metformin 500 mg tablet 500 mg PO BID 04/15/2505/28 History metoprolol succinate 25 mg 25 mg PO QDAY 04/15/2508/21 History tablet,extended release 24 hr (Toprol XL) semaglutide 0.25 mg or 0.5 mg (2 0.25 mg subcut QWEEK 04/15/25 05/28/25 History mg/1.5 mL) subcutaneous pen injector (Ozempic) apixaban 2.5 mg tablet (Eliquis) 2.5 mg PO BID 5 05/28/25 History cefdinir 300 mg capsule 300 mg PO BID 05/28/2505/28 History ondansetron HCl 4 mg tablet 4 mg PO Q8H PRN 05/28/25 1 07/29/24 History rosuvastatin 10 mg tablet 10 mg PO HS 05/28/25 5 History Allergies Allergies Allergy/AdvReac Type Severity Reaction Status Date / Time codeine Allergy Verified 04/15/25 13:11 Labs Labs: Laboratory POC Glucose (mg/dL) 189 mg/dL (65-99) H 05/28/25 16:44 Review of Systems Constitutional: See HPI Eyes: No Symptoms Reported ENT: No Symptoms Reported Respiratory: No Symptoms Reported Cardiovascular: No Symptoms Reported and See HPI Gastrointestinal: No Symptoms Reported Genitourinary: No Symptoms Reported Musculoskeletal: See HPI Skin: See HPI Neurological: See HPI Physical Exam Vital Signs: Vital Signs Temperature 97.8 F Temperature 97.7 F Pulse Rate [Left Brachial] 79 Pulse Rate [Left Brachial] 81 Respiratory Rate 19 Respiratory Rate 20 Blood Pressure [Left Arm] 99/48 Blood Pressure [Left Arm] 128/60 O2 Sat by Pulse Oximetry 97 O2 Sat by Pulse Oximetry 98 Oriented: Normal, Time, Person and Place Eyes: Normal Ear: Normal Nose: Normal Throat: Normal Respiratory: Clear Throughout Cardiovascular: Normal : Normal Auscultation: Bowel Sounds: Normal Palpation: Normal Tenderness: Normal Skin: Other (ischemic appearing discoloration of the medial aspect right great toe , very tender to touch ) Musculoskeletal: Deformity (Left transmetatarsal amputation well-healed) Psychiatric: Normal Mood Description: Calm Affect: Normal Speech Pattern: Clear and Appropriate Assessment/Plan (1) Atherosclerosis of [place] arteries of extremities with rest pain, right leg: Status: Acute Plan: Patient will be admitted and placed on therapeutic Lovenox dose and given Percocet for pain. Will obtain CT angiogram tomorrow. I believe that this episode of dehydration may have caused occlusion of the arteries of the right leg. More likely will require repeat intervention possible EKOS thromb olysis again. (2) Essential (primary) hypertension: Status: Acute Plan: Home medications (3) Type 2 diabetes mellitus without complications: Status: Acute Plan: Home medications (4) Personal history of transient ischemic attack (TIA), and cerebral infarction without residual deficits: Status: Acute Plan: Stable, home medications (5) Hyperlipidemia: Status: Acute Plan: Home medications Review H&P Reviewed: Yes Patient was examined?: Yes
[2025-05-28] MEDS: PERCOCET TAB 5/325 MG PO PRN (17:53)
[2025-05-28 18:15] LABS: MEAN PLATELET VOLUME 7.4 fL (7.4-11.0); RED CELL DISTRIBUTION WIDTH 19.1 % (11.6-16.5)
[2025-05-28 18:24] LABS: COR NA(FOR HYPERGLY) 136 mmol/L (136-145); CREATININE 1.62 mg/dL (0.70-1.30); eGFR NON BLACK RACES 44 (>60)
[2025-05-28] MEDS: CRESTOR TAB 10 MG PO SCH (22:14)
[2025-05-28] MEDS: COLACE CAP 100 MG PO SCH (22:14)
[2025-05-28] MEDS: LOVENOX INJ 80 MG SYR SC SCH (22:15)
[2025-05-28] MEDS: XALATAN AFFEYE SCH (22:15)
[2025-05-28] MEDS: SNACK - Diabetic Appropriate PO SCH (22:16)
[2025-05-29 05:53] LABS: MEAN PLATELET VOLUME 6.9 fL (7.4-11.0); RED CELL DISTRIBUTION WIDTH 18.3 % (11.6-16.5)
[2025-05-29 06:06] LABS: COR CA(FOR HYPOALB) 10.0 mg/dL (8.5-10.1); COR NA(FOR HYPERGLY) 137.0 mmol/L (136-145); CREATININE 1.58 mg/dL (0.70-1.30); eGFR NON BLACK RACES 45.0 (>60)
[2025-05-29] MEDS: LR 1,000 ML IV 1,000 ML IV SCH (07:06)
[2025-05-29] MEDS ORDERED: ZESTRIL TAB 20 MG PO SCH (09:00)
[2025-05-29] MEDS: NORVASC TAB 10 MG PO SCH (10:06)
[2025-05-29] MEDS: ZETIA TAB 10 MG PO SCH (10:06)
[2025-05-29] MEDS: TOPROL XL PO SCH (10:06)
[2025-05-29] MEDS: ASPIRIN EC 81 MG PO SCH (10:07)
[2025-05-29] MEDS: LIDODERM 5% PATCH TD SCH (12:20)
--- NOTE | 2025-05-29 20:01 | NOTE.SOAP ---
Soap Note Note for Day of Date of Exam: 05/29/25 Subjective Data Subjective Data: Patient was supposed to have CT angiogram today in anticipation of intervention of the right leg tomorrow but his pain was too great and he cannot keep the leg extended therefore we will do on table arteriogram tomorrow. Creatinine 1.58 Objective Data Temperature: 97.5 F Pulse Rate: 75 Respiratory Rate: 17 Blood Pressure: 113/56 O2 Sat by Pulse Oximetry: 99 Objective Data: Right measuring machine tender. Dark area on the medial aspect of the right great toe is worse. Hemoglobin was 9.7 , creatinine equals 1.58, white blood cell count 4400 Assessment Assessment: Arterial invention right leg tomorrow. Will repeat basic metabolic profile in the morning. Patient already has had current EKG and chest x-ray. Plan Plan: as above
[2025-05-29] MEDS: K-DUR TAB 20 MEQ PO SCH (20:54)
[2025-05-30] MEDS: HIBICLENS WASH EXT ONE (05:29)
[2025-05-30 05:43] LABS: MEAN PLATELET VOLUME 6.8 fL (7.4-11.0); RED CELL DISTRIBUTION WIDTH 18.5 % (11.6-16.5)
[2025-05-30 05:56] LABS: COR NA(FOR HYPERGLY) 139 mmol/L (136-145); CREATININE 1.10 mg/dL (0.70-1.30); eGFR NON BLACK RACES > 60 (>60)
[2025-05-30] MEDS: OFIRMEV IV 1000 MG VIAL 1,000 MG/100 ML VIAL IV ONE (09:29)
[2025-05-30] MEDS: DIPRIVAN VIAL 20 ML ONE ×2 (09:29→11:18)
[2025-05-30] MEDS: ZOFRAN INJ 4 MG VIAL ONE (09:29)
[2025-05-30] MEDS: HEPARIN SODIUM INJ 5000 UNITS ONE (09:29)
[2025-05-30] MEDS: REGLAN INJ 10 MG VIAL ONE (09:29)
[2025-05-30] MEDS: FENTANYL VIAL INJ 100 mcg ONE (09:36)
[2025-05-30] MEDS: NS 1,000 ML IV 1,000 ML ONE ×2 (10:25→11:45)
[2025-05-30] MEDS: NS 1,000 ML IV 500 ML IV PRN (10:29)
[2025-05-30] MEDS: ZOFRAN INJ 4 MG VIAL IVP PRN (10:33)
[2025-05-30] MEDS: REGLAN INJ 10 MG VIAL IVP PRN (10:33)
[2025-05-30] MEDS: PEPCID 20 MG VIAL ONE (10:40)
[2025-05-30] MEDS: NS 100 ML IV 100 ML ONE (10:44)
[2025-05-30] MEDS: ANCEF VIAL 1 GRAM ONE (10:44)
[2025-05-30] MEDS: ANCEF VIAL 1 GRAM IV PRN (10:46)
[2025-05-30] MEDS: XYLOCAINE 2 % (PLAIN) INJ PRN (10:51)
[2025-05-30] MEDS: PRECEDEX INJ VIAL IVP PRN (10:52)
[2025-05-30] MEDS: FENTANYL VIAL INJ 100 mcg IVP PRN (10:54)
[2025-05-30] MEDS: OFIRMEV IV 1000 MG VIAL 1,000 MG/100 ML VIAL IV PRN (11:00)
[2025-05-30] MEDS: KETAMINE HCL IVP PRN (11:12)
[2025-05-30] MEDS: VISIPAQUE 100 ML ONE (11:14)
[2025-05-30] MEDS: MARCAINE 0.5% ONE (11:14)
[2025-05-30] MEDS: HEPARIN 1,000 UNIT/500 ML-NS 3,000 UNIT/1,500 ML IV.SOLN ONE (11:14)
[2025-05-30] MEDS: VISIPAQUE 50 ML ONE (11:14)
[2025-05-30] MEDS: HEPARIN SODIUM INJ 5000 UNITS IVP PRN (11:15)
[2025-05-30] MEDS: EPHEDRINE SULFATE INJ ONE (11:43)
[2025-05-30] MEDS: ACTIVASE CATHFLO ONE ×2 (11:45→23:33)
[2025-05-30] MEDS: EPHEDRINE SULFATE INJ IVP PRN (11:46)
[2025-05-30] MEDS: ACTIVASE CATHFLO 12 MG in NS 250 ML IV 228 ML IV SCH (11:50)
[2025-05-30] MEDS: NEO-SYNEPHRINE INJ IVP PRN (11:53)
--- NOTE | 2025-05-30 12:52 | OR.IMMED ---
IMMEDIATE POST-OP NOTE Immediate Post-Op Note Date of surgery/procedure: 05/30/25 Pre-Op Diagnosis: Severe rest pain right leg probable occlusion/thrombosis of arterial structures right Post-Op Diagnosis: Occlusion of right superficial artery stents and occlusion of runoff of the right leg Procedure: Aortogram, arteriogram right leg, placement of EKOS thrombolytic catheter for directed thrombolysis Description of Procedure: dictated Surgeon/Sound Engineering Technician: Luis Richey MD FACS Findings: Thrombosis of all the right superficial femoral artery stents with reconstitution of the popliteal artery and occlusion of all three-vessel runoff. Arteriogram carried out once we cannulized the anterior tibial artery did show some flow into the foot Estimated Blood Loss: < 50 cc Complications: none Progress Notes: Patient returned to ICU for directed thrombolysis of the arteries of the right leg
[2025-05-30 13:16] LABS: MEAN PLATELET VOLUME 6.4 fL (7.4-11.0); RED CELL DISTRIBUTION WIDTH 18.2 % (11.6-16.5)
[2025-05-30] MEDS: NS 500 ML IV 500 ML IV SCH (13:29)
[2025-05-30 19:54] LABS: MEAN PLATELET VOLUME 6.7 fL (7.4-11.0); RED CELL DISTRIBUTION WIDTH 18.5 % (11.6-16.5)
--- NOTE | 2025-05-30 20:02 | DR.OPNOTE ---
OP NOTE Pre-Op Diagnosis: Rest pain of the right leg probable thrombosis right leg artery Post-Op Diagnosis: Same, see findings below Procedure Date Date Of Procedure: 05/30/25 Procedure: PROCEDURE: Diagnostic aortogram, diagnostic arteriogram right leg, catheterization of the right anterior tibial artery and placement of EKOS thrombolytic catheter for directed thrombolysis and first day of directed arterial thrombolysis NARRATIVE: The patient was taken to the operative suite and placed in the supine position. The left groin and entire right leg were prepped and draped in sterile fashion. Patient was given intravenous sedation supervised by myself. Timeout for the procedure obtained. Ultrasound used to identify the femoral artery in the left groin and the skin overlying it infiltrated with 0.5% Marcaine. Ultrasound used to guide puncture of the left femoral artery and a 0.012 inch guidewire placed. Incision made over the guidewire at the skin edge with a #11 knife blade and the micro sheath placed over the guidewire into the f emoral artery. Small wire exchanged for a 0.035 inch Advantage Glidewire and the micro sheath exchanged for a 5 English vascular sheath. Patient given 5000 units of intravenous heparin. Omni catheter placed over the guidewire into the aorta and power injector used to perform aortogram showing normal patent aorta and iliac arteries bilaterally. The Omni catheter was then used to direct the guidewire down the right common iliac artery to the distal right external iliac artery. The Omni catheter exchanged for a [place] catheter and sequential arteriograms performed of the right leg showing complete occlusion of the right superficial femoral artery stents lining the entire superficial artery with reconstitution of the popliteal artery and tibioperoneal trunk and occlusion of all trifurcation vessels of the right leg. The [place] catheter removed and over the guidewire the 5 English sheath was exchanged for a 7 English [place] Sheath which was parked distal right external iliac artery. [place] catheter and the 0.035 guidewire used to traverse the arteries and stetns of the right superficial femoral artery ultimately ending in right anterior tibial artery. This was selective catheterization. It should be noted that we had difficulty crossing the very proximal part of the superficial artery stent at it's takeoff of the superficial artery and I feel this may be part of the problem. Over the 0.035 Advantage wire we placed the outer core of the EKOS thrombolytic catheter, removed the wire and then placed the inner core of the catheter and positioned it along the entire length of the right superficial artery from its takeoff as far as it would go. The drug port was bolused with 4 mg of tPA and started a drip at 1 mg/h of TPA . Coolant started at 30 cc/h in the coolant port. Patient to be given therapeutic subcutaneous Lovenox. The sheath in the left groin and sutured in position as well as the catheter. Patient had this covered with a Tegaderm and taken to the ICU in good condition. Type of Anesthesia: Local (0.5% Marcaine) Anesthesia Comment: Plus MAC Findings: Complete occlusion of the proximal right superficial femoral artery stents with occlusion of the trifurcation vessels of the right leg. Type of Fluids Used:: Lactated Ringers Total Amount of Fluid Infused:: 500 cc Urine output: 100 cc EBL: 50 cc Complications:: None Needle/Sponge Count:: correct Disposition/Condition: Pt. tolerated procedure without difficulty. Patient taken to ICU in stable condition.
[2025-05-30] MEDS: PHARMACY COMMENT TOP SCH (20:08)
--- NOTE | 2025-05-30 20:37 | RAD ---
EXAM: CHEST, 1 VIEW HISTORY: pre-op; pre-op artery (PT had sx this AM) COMPARISON: No relevant prior studies available. TECHNIQUE: Chest radiographic imaging, AP portable projection, 1 image FINDINGS: No cardiomegaly. No focal airspace disease. No pleural effusion. No pneumothorax. No acute osseous abnormality. IMPRESSION: No imaging findings of acute cardiopulmonary disease. THIS IS AN ELECTRONICALLY VERIFIED FINAL REPORT 05/30/2025 8:34 PM - Electronically signed by Ambrosio Moore MD
[2025-05-30] MEDS: OMNIPAQUE 350 mg/mL 100 mL BTL 100 ML ONE (20:41)
[2025-05-30] MEDS: OMNIPAQUE 350 mg/mL 100 mL BTL IVP NR (20:41)
[2025-05-30] MEDS: OMNIPAQUE 350 mg/mL 50 mL BTL 50 ML ONE (20:41)
[2025-05-30] MEDS: ACTIVASE CATHFLO 12 MG in NS 250 ML IV 228 ML INTRACATH ONE ×3 (20:42)
[2025-05-30] MEDS: CONSULT PHARMACY - POTASSIUM & MAGNESIUM XX SCH (20:44)
[2025-05-30] MEDS ORDERED: NS 250 ML IV 250 ML IV ONE (22:53)
[2025-05-31 02:25] LABS: MEAN PLATELET VOLUME 6.4 fL (7.4-11.0); RED CELL DISTRIBUTION WIDTH 18.4 % (11.6-16.5)
[2025-05-31] MEDS: OMNIPAQUE 350 mg/mL 100 mL BTL IVP NR (07:55)
[2025-05-31] MEDS: OMNIPAQUE 350 mg/mL 50 mL BTL IVP NR ×2 (07:55)
[2025-05-31 10:19] LABS: MEAN PLATELET VOLUME 6.5 fL (7.4-11.0); RED CELL DISTRIBUTION WIDTH 18.5 % (11.6-16.5)
[2025-05-31] MEDS: KETAMINE HCL ONE (11:30)
[2025-05-31] MEDS: FENTANYL VIAL INJ 100 mcg ONE (11:30)
[2025-05-31] MEDS: ZOFRAN INJ 4 MG VIAL ONE (11:40)
[2025-05-31] MEDS: NS 1,000 ML IV 1,000 ML ONE (11:43)
[2025-05-31] MEDS: NS 1,000 ML IV 600 ML IV PRN (12:00)
[2025-05-31] MEDS: ZOFRAN INJ 4 MG VIAL IVP PRN (12:00)
[2025-05-31] MEDS: ANCEF VIAL 1 GRAM ONE (12:03)
[2025-05-31] MEDS: NS 100 ML IV 100 ML ONE (12:03)
[2025-05-31] MEDS: ANCEF VIAL 1 GRAM IV PRN (12:19)
[2025-05-31] MEDS ORDERED: XYLOCAINE 2 % (PLAIN) PRN (12:31)
[2025-05-31] MEDS: DIPRIVAN VIAL 350 ML IVP PRN (12:31)
[2025-05-31] MEDS: PRECEDEX INJ VIAL IVP PRN (12:31)
[2025-05-31] MEDS: FENTANYL VIAL INJ 100 mcg IVP PRN (12:33)
[2025-05-31] MEDS: HEPARIN 1,000 UNIT/500 ML-NS 3,000 UNIT/1,500 ML IV.SOLN ONE (12:53)
[2025-05-31] MEDS: MARCAINE 0.5% ONE (12:53)
[2025-05-31] MEDS: VISIPAQUE 100 ML ONE (12:53)
[2025-05-31] MEDS ORDERED: HEPARIN SODIUM INJ 5000 UNITS IVP PRN (12:56)
[2025-05-31] MEDS: DIPRIVAN VIAL 20 ML ONE (13:07)
[2025-05-31] MEDS: EPHEDRINE SULFATE INJ ONE (13:12)
[2025-05-31] MEDS: NEO-SYNEPHRINE INJ IVP PRN (13:19)
[2025-05-31] MEDS: EPHEDRINE SULFATE INJ IVP PRN (13:30)
[2025-05-31] MEDS: VISIPAQUE 50 ML ONE (13:39)
[2025-05-31] MEDS: KETAMINE HCL IVP PRN (13:41)
[2025-05-31] MEDS ORDERED: DIPRIVAN VIAL 20 ML ONE (14:08)
--- NOTE | 2025-05-31 14:22 | OR.IMMED ---
IMMEDIATE POST-OP NOTE Immediate Post-Op Note Date of surgery/procedure: 05/31/25 Pre-Op Diagnosis: critical ischemia right leg , thombosis all of right SFA stents Post-Op Diagnosis: same , see findings Procedure: arteriogram right leg , angioplasty right PT and AT arteries , drug coated balloon angioplasty takeoff of right SFA stents Surgeon/Family Medicine Physician Assistant: Kaiden Findings: patent stents right SFA with stenosis most proximal stent in right SFA , occluded right AT tand PT arteries , poor runoff into the right foot Estimated Blood Loss: 50 cc Complications: none Progress Notes: To CCU , continue anticoagulation, high risk of right above knee amputation
[2025-05-31 15:19] LABS: MEAN PLATELET VOLUME 6.5 fL (7.4-11.0); RED CELL DISTRIBUTION WIDTH 18.6 % (11.6-16.5)
[2025-05-31 19:37] LABS: MEAN PLATELET VOLUME 6.6 fL (7.4-11.0); RED CELL DISTRIBUTION WIDTH 18.7 % (11.6-16.5)
[2025-05-31] MEDS: XARELTO PO SCH (20:35)
--- NOTE | 2025-05-31 22:38 | NOTE.SOAP ---
Soap Note Note for Day of Date of Exam: 05/31/25 Subjective Data Subjective Data: Status post EKOS thrombolysis of stents of the right superficial femoral artery with angioplasty of the right anterior tibial and right posterior tibial artery with flow mainly down the posterior tibial artery and poor flow into the foot. Patient has been able to keep his leg straight since the procedure, i.e. maybe his pain is less. Objective Data Temperature: 99.9 F Pulse Rate: 85 Respiratory Rate: 19 Blood Pressure: 121/58 O2 Sat by Pulse Oximetry: 98 Objective Data: Right foot now warm. Good Doppler signal in the posterior tibial artery at the ankle but not in the foot itself. Foot is warm. Much less pain. Assessment Assessment: Status post thrombolysis of occluded stents of the right superficial femoral artery ,angioplasty of the anterior tibial and posterior tibial arteries. Plan Plan: Continue aspirin and Xarelto. Reevaluate. Patient may still require amputation of the right leg.
[2025-06-01 01:28] LABS: MEAN PLATELET VOLUME 6.6 fL (7.4-11.0); RED CELL DISTRIBUTION WIDTH 19.0 % (11.6-16.5)
[2025-06-01 09:19] LABS: MEAN PLATELET VOLUME 7.1 fL (7.4-11.0); RED CELL DISTRIBUTION WIDTH 19.3 % (11.6-16.5)
[2025-06-01 09:23] LABS: COR NA(FOR HYPERGLY) 143 mmol/L (136-145); CREATININE 0.95 mg/dL (0.70-1.30); eGFR NON BLACK RACES > 60 (>60)
--- NOTE | 2025-06-01 11:27 | DR.OPNOTE ---
OP NOTE Pre-Op Diagnosis: Critical ischemia right leg with thrombosis of right superficial artery sandra Post-Op Diagnosis: Same, see findings Procedure Date Date Of Procedure: 05/31/25 Procedure: PROCEDURE: Arteriogram of the right lower extremity, angioplasty right anterior tibial artery, angioplasty right posterior tibial artery, drug- coated balloon angioplasty of the takeoff of the right superficial femoral artery stent at the junction of the superficial femoral artery and the common femoral artery. This day was the second day of TPA infusion through the EKOS catheter NARRATIVE: This patient yesterday had undergone aortogram, arterial right lower extremity with placement of a EKOS thrombolytic catheter for complete occlusion of the right superficial femoral artery stent along it's entire length with occlusion of all primary's runoff vessels of the right leg. The patient was taken to the operating suite and placed in the supine position and given IV sedation supervised by myself. Time out for procedure obtained. The EKOS catheter was discontinued and through the outer sheath we placed a 0.035 inch Advantage guidewire and removed the outer sheath and placed a [place] catheter and performed arteriogram of the right lower extremity showing very poor flow through the now patent superficial artery stents with questionable stenosis at the takeoff of the right superficial artery stent .Using the [place] catheter to do sequential arteriograms of the stents finding them to be completely patent as well well as patent tibioperoneal trunk. The [place] catheter and a 0.035 inch wire used to take the wire all the way down the anterior tibial artery and we exchanged the 0.035 inch wire for a 0.018 inch wire. This was selective catherization. Over this wire we placed a 2.5 x 200 mm [employer] Dustin balloon inflated for 1 minute. We then backed up the balloon, inflated for 1 minute in the proximal anterior tibial artery .Arteriogram then showed no significant flow through the anterior tibial artery. We backed up the catheter and wire and placed them down both down the posterior tibial artery all of the ankle.This was selective catheterization. Then removed the [place] and over the wire we placed the 2.5 x 220 mm balloon for angioplasty of the entire right posterior tibial artery. This required 2 inflations each for 1 minute each and . We removed the balloon and wire performed arteriogram showing good flow through the posterior tibial artery to the ankle but there was very poor flow in the foot itself. This patient is at high risk for amputation. A t this point all wires and devices removed. The sheath in the left groin was pulled back into the aorta and the sheath had a 0.035 inch wire placed. The sheath exchanged for an Angioseal device used to close the puncture of the left femoral artery. Dressing applied. Patient taken back to the ICU for continued care and recovery. Type of Anesthesia: Local (0.5% Marcaine) Anesthesia Comment: plus MAC Findings: Resolution of thrombus of the right superficial artery stents. Stenosis at the proximal takeoff of the stent in the proximal right superficial femoral artery, occluded anterior tibial and posterior tibial arteries, occluded right peroneal artery. Type of Fluids Used:: Lactated Ringers Total Amount of Fluid Infused:: 600cc Urine output: 125 cc EBL: < 50 cc Complications:: none Needle/Sponge Count:: correct Disposition/Condition: Pt. tolerated procedure without difficulty. Taken to the CCU in stable condition.
[2025-06-01] MEDS: NovoLIN R (or HumuLIN R) SUBCUT PRN (12:15)
--- NOTE | 2025-06-01 12:23 | NOTE.SOAP ---
Soap Note Note for Day of Date of Exam: 06/01/25 Subjective Data Subjective Data: Patient is status post angioplasty of the right posterior tibial and anterior tibial artery as well as the takeoff of the right superficial artery since yesterday after previous 24 hours of tPA directed infusion for thrombosis of arteries of the right leg. Patient right foot is warm. He still contracted at the knee joint complaining of pain however he has good however he has good Doppler signal in the right posterior tibial artery. Objective Data Temperature: 99.0 F Pulse Rate: 83 Respiratory Rate: 21 Blood Pressure: 114/54 O2 Sat by Pulse Oximetry: 100 Objective Data: Right foot warm. Knee bent on right leg. Posterior tibial artery with biphasic flow. Poor flow into the right foot on the right leg. Posterior tibial artery with biphasic flow. Poor flow into the right foot by Doppler Assessment Assessment: Status post thrombosis of arterial structures right leg status post EKOS directed thrombolysis and arterial intervention. Plan Plan: Will Hep-Lock IV fluids. Patient already on p.o. aspirin and Xarelto. Xarelto. Plan discharge to either home or nursing home facility in the near future. Patient still at high risk for right above-knee amputation.
--- NOTE | 2025-06-02 17:28 | NOTE.SOAP ---
Soap Note Note for Day of Date of Exam: 06/02/25 Subjective Data Subjective Data: Patient's leg is still warm. However, he keeps it contracted in the knee joint and I am unsure as to why as he denies pain in the foot and the foot is warm with good Doppler signal in the posterior tibial artery. Objective Data Temperature: 97.8 F Pulse Rate: 80 Respiratory Rate: 19 Blood Pressure: 113/77 O2 Sat by Pulse Oximetry: 98 Objective Data: As above. Hemoglobin equals 9.1, white blood cell count 5300, creatinine normal at 0.95, Asencio catheter has been removed Assessment Assessment: Ischemic leg with poor runoff of the right leg but thrombosis however it is warm and doing well. I am unsure as to why he keeps it contracted but if he continues this he will require amputation above the knee. Plan Plan: Physical therapy consult.
--- NOTE | 2025-06-05 17:52 | NOTE.SOAP ---
Soap Note Note for Day of Date of Exam: 06/03/25 Subjective Data Subjective Data: Patient doing well after revascularization of the right leg but still has complete flexion of the leg of the knee complaining of pain of the ankle although his ankle is warm with no he has good blood flow there based on the revascularization. I am unsure as to why continues to have this and have asked physical therapy to see him. Objective Data Temperature: 98.6 F Pulse Rate: 74 Respiratory Rate: 18 Blood Pressure: 127/58 O2 Sat by Pulse Oximetry: 100 Objective Data: Right foot is warm with good Doppler signal in the posterior tibial artery. Has contracture at the knee joint. Assessment Assessment: Status post revascularization of the right leg. Has complete flexion of the leg of the knee joint. Denies knee pain. Plan Plan: physical tnherapy consult
--- NOTE | 2025-06-05 18:01 | NOTE.SOAP ---
Soap Note Note for Day of Date of Exam: 06/04/25 Subjective Data Subjective Data: No change. Patient still flexes right leg on knee. Complains of pain at the ankle but there is good Doppler signal and foot is warm. Objective Data Temperature: 98.7 F Pulse Rate: 78 Respiratory Rate: 16 Blood Pressure: 104/49 O2 Sat by Pulse Oximetry: 98 Objective Data: Leg remains flexed on the knee of the right leg. Warm right foot with good Doppler signal in the right posterior tibial artery Assessment Assessment: Ischemic right leg status post arterial intervention Plan Plan: Continue physical therapy. Will obtain studies of the arterial structures of the right leg as well as the knee joint itself.
--- NOTE | 2025-06-05 18:04 | NOTE.SOAP ---
Soap Note Note for Day of Date of Exam: 06/05/25 Subjective Data Subjective Data: No significant improvement has extension of the right leg with physical therapy. Still complains of pain at the ankle. Objective Data Temperature: 97.6 F Pulse Rate: 74 Respiratory Rate: 18 Blood Pressure: 106/55 O2 Sat by Pulse Oximetry: 99 Objective Data: Warm right foot and leg. Assessment Assessment: Status post revascularization of the right leg. Unsure as to why he still complains of pain and flexes his leg on his knee joint Plan Plan: X-rays of the right knee and lower extremity arterial Doppler studies pending.
--- NOTE | 2025-06-06 14:29 | W.DIS.FURT ---
Summary of Discharge Discharge Summary of Date Date of Exam: 06/06/25 Admission Date Date of Admission: 05/28/25 Admission Diagnosis Hospital Course: This is a 79-year-old gentleman currently in a long term facility with history of diabetes, hypertension, hyperlipidemia and history of stroke with no significant residual who had EKOS thrombolysis of occluded right leg in March of this year but never came to see me in follow-up. At that time he had EKOS thrombolysis and subsequent balloon angioplasty of the proximal peroneal artery and atherectomy and ballooon angioplasty to the distal tibioperoneal trunk artery artery. Patient was seen in the [place], [place] for dehydration April 18 and since that time has had significant pain in his right foot. He has a well-healed left transmetatarsal amputation. He was admitted and placed on therapeutic Lovenox and underwent placement EKOS catheter on May 30 for 24 hours of thrombolysis and subsequent had angioplasty of the anterior tibial and posterior tibial arteries as well as the proximal takeoff of the stent in the superficial femoral artery. Since that time he has kept his leg bent at the knee. His feet are warm. He has had repeat Doppler study that shows no significant flow down the right foot. I do not think this is salvageable at this point and most likely in the near future will require above- knee amputation. He is to be discharged to the long term to see if how he will do first. He will be discharged on his usual medications including [place], 10 mg tablets, 1 every 6 hours as needed pain. He will follow-up with me in 1 week Vital Signs: Vital Signs (72 hours) 06/03/25 15:00 06/03/25 15:00 06/03/25 16:00 Temperature 98.6 F Pulse Rate 78 Respiratory Rate 19 Blood Pressure 111/56 127/58 O2 Sat by Pulse Oximetry 100 Oxygen Delivery Method 06/03/25 16:00 06/03/25 17:00 06/03/25 17:00 Temperature Pulse Rate 74 75 Respiratory Rate 18 19 Blood Pressure 120/57 O2 Sat by Pulse Oximetry 100 100 Oxygen Delivery Method 06/03/25 18:13 06/03/25 19:00 06/03/25 19:13 Temperature Pulse Rate Respiratory Rate 20 20 Blood Pressure O2 Sat by Pulse Oximetry Oxygen Delivery Method Room Air 06/03/25 19:44 06/04/25 00:00 06/04/25 04:00 Temperature 98.7 F 98.5 F 97.8 F Pulse Rate 78 79 79 Respiratory Rate 16 18 16 Blood Pressure 103/49 118/53 95/53 O2 Sat by Pulse Oximetry 98 100 100 Oxygen Delivery Method 06/04/25 07:00 06/04/25 08:00 06/04/25 12:00 Temperature 98.5 F 98.4 F Pulse Rate 80 86 Respiratory Rate 16 16 Blood Pressure 119/58 137/58 O2 Sat by Pulse Oximetry 99 98 Oxygen Delivery Method Room Air 06/04/25 15:42 06/04/25 19:00 06/04/25 19:58 Temperature 99.7 F H 98.9 F Pulse Rate 82 85 Respiratory Rate 16 16 Blood Pressure 135/63 109/62 O2 Sat by Pulse Oximetry 99 98 Oxygen Delivery Method Room Air Room Air 06/05/25 00:00 06/05/25 04:00 06/05/25 07:00 Temperature 97.9 F 98.4 F Pulse Rate 72 72 Respiratory Rate 16 18 Blood Pressure 113/68 135/58 O2 Sat by Pulse Oximetry 97 100 Oxygen Delivery Method Room Air Room Air Room Air 06/05/25 08:00 06/05/25 12:00 06/05/25 13:25 Temperature 97.9 F 98.3 F Pulse Rate 73 75 Respiratory Rate 19 18 18 Blood Pressure 120/57 110/55 O2 Sat by Pulse Oximetry 100 100 Oxygen Delivery Method Room Air Room Air 06/05/25 14:25 06/05/25 16:00 06/05/25 17:52 Temperature 97.6 F 98.6 F Pulse Rate 74 74 Respiratory Rate 18 18 18 Blood Pressure 106/55 127/58 O2 Sat by Pulse Oximetry 99 100 Oxygen Delivery Method Room Air 06/05/25 18:01 06/05/25 18:04 06/05/25 19:00 Temperature 98.7 F 97.6 F Pulse Rate 78 74 Respiratory Rate 16 18 Blood Pressure 104/49 106/55 O2 Sat by Pulse Oximetry 98 99 Oxygen Delivery Method Room Air 06/05/25 20:00 06/06/25 00:00 06/06/25 04:00 Temperature 97.8 F 97.6 F 97.7 F Pulse Rate 74 79 68 Respiratory Rate 18 17 17 Blood Pressure 104/69 125/59 112/55 O2 Sat by Pulse Oximetry 98 99 96 Oxygen Delivery Method Room Air Room Air Room Air 06/06/25 07:00 06/06/25 08:00 Temperature 97.8 F Pulse Rate 80 Respiratory Rate 17 Blood Pressure 127/59 O2 Sat by Pulse Oximetry 97 Oxygen Delivery Method Room Air Room Air Labs: Laboratory Last Values WBC 5.3 X10^3/uL (3.6-10.0) 06/01/25 08:50 RBC 2.91 X10^6/uL (4.7-6.0) L 06/01/25 08:50 Hgb 9.1 g/dL (13.5-18.0) L 06/01/25 08:50 Hct 26.8 % (42.0-54.0) L 06/01/25 08:50 MCV 92.2 fL (80.0-100.0) 06/01/25 08:50 MCH 31.3 pg (27.0-34.0) 06/01/25 08:50 MCHC 34.0 g/dL (33.0-35.0) 06/01/25 08:50 RDW 19.3 % (11.6-16.5) H 06/01/25 08:50 Plt Count 96 X10^3/uL (150.0-450.0) L 06/01/25 08:50 MPV 7.1 fL (7.4-11.0) L 06/01/25 08:50 Neut % (Auto) 57.9 % (42.0-75.0) 06/01/25 08:50 Lymph % (Auto) 28.9 % (21.0-51.0) 06/01/25 08:50 [place] % (Auto) 11.6 % (0.0-13.0) 06/01/25 08:50 Eos % (Auto) 1.3 % (0.9-2.9) 06/01/25 08:50 Baso % (Auto) 0.3 % (0.2-1.0) 06/01/25 08:50 Neut # (Auto) 3.1 x10^3/uL (2.2-4.8) 06/01/25 08:50 Lymph # (Auto) 1.5 X10^3/uL (1.3-2.9) 06/01/25 08:50 [place] # (Auto) 0.6 x10^3/uL (0.3-0.8) 06/01/25 08:50 Eos # (Auto) 0.1 x10^3/uL (0.0-0.2) 06/01/25 08:50 Baso # (Auto) 0.0 X10^3/uL (0.0-0.1) 06/01/25 08:50 Absolute Nucleated RBC 0.5 /100WBC 06/01/25 08:50 APTT 37.4 SECONDS (22.9-36.5) H 06/01/25 01:05 PTT Comment - 06/01/25 01:05 Fibrinogen 156 mg/dL (239-489) L* 05/31/25 15:08 Sodium 141 mmol/L (136-145) 06/01/25 08:50 Corrected Sodium 143 mmol/L (136-145) 06/01/25 08:50 Potassium 3.5 mmol/L (3.5-5.1) 06/01/25 08:50 Chloride 106 mmol/L (98-107) 06/01/25 08:50 Carbon Dioxide 25.1 mmol/L (21-32) 06/01/25 08:50 BUN 6 mg/dL (7-18) L 06/01/25 08:50 Creatinine 0.95 mg/dL (0.70-1.30) 06/01/25 08:50 Est GFR (MDRD) Af Amer > 60 (>60) 06/01/25 08:50 Est GFR (MDRD) Non-Af > 60 (>60) 06/01/25 08:50 Glucose 182 mg/dL (65-99) H 06/01/25 08:50 POC Glucose (mg/dL) 157 mg/dL (65-99) H 06/06/25 05:53 Calcium 8.4 mg/dL (8.5-10.1) L 06/01/25 08:50 Corrected Calcium 10.0 mg/dL (8.5-10.1) 05/29/25 05:17 Total Bilirubin 0.40 mg/dL (0.2-1.0) 05/29/25 05:17 AST 96 Units/L (15-37) H 05/29/25 05:17 ALT 137 Units/L (12-78) H 05/29/25 05:17 Alkaline Phosphatase 133 Units/L (46-116) H 05/29/25 05:17 Total Protein 5.9 g/dL (6.4-8.2) L 05/29/25 05:17 Albumin 2.8 g/dL (3.4-5.0) L 05/29/25 05:17 Globulin 3.1 g/dL (2.5-4.5) 05/29/25 05:17 Albumin/Globulin Ratio 0.9 Ratio (1.1-2.1) L 05/29/25 05:17 Blood Type O POSITIVE 05/30/25 05:16 Antibody Screen Negative 05/30/25 05:16 Reason For Visit: CRITICAL ISCHEMIA RIGHT FOOT Discharge Date Discharge Date: 06/06/25 Discharge Diagnosis All Active Problems (Updated 04/16/25 @ 08:04 by Drew Richey) Personal history of transient ischemic attack (TIA), and cerebral infarction without residual deficits (Acute) Hyperlipidemia (Acute) Essential (primary) hypertension (Acute) Type 2 diabetes mellitus without complications (Acute) Atherosclerosis of [place] arteries of extremities with rest pain, left leg (Acute) Atherosclerosis of [place] arteries of extremities with rest pain, right leg (Acute) Plan of Treatment: Continue with present treatment and follow up plan. Pt is to keep follow up appointment as instructed and take medications as ordered. Discharge Medications Discharge Medications: codeine Allergy (Verified 04/15/25 13:11) CONTINUE taking the following medications apixaban 2.5 mg tablet (Eliquis) 2.5 mg PO BID 05/28/25 [History] cefdinir 300 mg capsule 300 mg PO BID 05/28/25 [History] ondansetron HCl 4 mg tablet 4 mg PO Q8H PRN 05/28/25 [History] rosuvastatin 10 mg tablet 10 mg PO HS 05/28/25 [History] [place], 10 mg tablet, 1 every 6 hours as needed pain Discharge Disposition Assessment: see hospital course Discharge Plan Discharge Plan Hospital Course: This is a 79-year-old gentleman currently in a long term facility with history of diabetes, hypertension, hyperlipidemia and history of stroke with no significant residual who had EKOS thrombolysis of occluded right leg in March of this year but never came to see me in follow-up. At that time he had EKOS thrombolysis and subsequent balloon angioplasty of the proximal peroneal artery and atherectomy and ballooon angioplasty to the distal tibioperoneal trunk artery artery. Patient was seen in the hospital [place], [place] for dehydration April 18 and since that time has had significant pain in his right foot. He has a well-healed left transmetatarsal amputation. He was admitted and placed on therapeutic Lovenox and underwent placement EKOS catheter on May 30 for 24 hours of thrombolysis and subsequent had angioplasty of the anterior tibial and posterior tibial arteries as well as the proximal takeoff of the stent in the superficial femoral artery. Since that time he has kept his leg bent at the knee. His feet are warm. He has had repeat Doppler study that shows no significant flow down the right foot. I do not think this is salvageable at this point and most likely in the near future will require above- knee amputation. He is to be discharged to the long term to see if how he will do first. He will be discharged on his usual medications including [place], 10 mg tablets, 1 every 6 hours as needed pain. He will follow-up with me in 1 week Patient Disposition: XF SNF Condition: Stable Health Concerns: Post Hospitalization: new medications and changes needed to prevent readmission or further decline. Pt educated and given instructions on all concerns. Care Plan Goals: Problem: Pain/Alteration in Comfort Goal: Improve/ Resolve Pain; Achieve Pain Tolerance Instructions: Take pain medications as prescribed. Contact your primary care provider if your pain is unrelieved or worsens. Follow up with primary care provider as directed. Plan of Treatment: Continue with present treatment and follow up plan. Pt is to keep follow up appointment as instructed and take medications as ordered. Assessment: see hospital course Prescription drug monitoring program results: PDMP was not reviewed Prescriptions: Continued amlodipine 10 mg Tablet 10 mg PO QDAY aspirin 81 mg Tablet,Chewable 81 mg PO QDAY glucagon HCl 1 mg Recon Soln 1 mg SUBCUT Q20M PRN Rx Instructions: Inject 1 ml IM as needed for low blood sugar finger stick. Blood sugar less than 60 and resident is unresponsive, notify , may pull from [facility]. Una blood sugar in 10 minutes. latanoprost 0.005 % Drops 1 drp OPHTHALMIC (EYE) QPM Rx Instructions: Instill one drop both eyes at bedtime for glaucoma hydrocodone-acetaminophen 5-325 mg Tablet 2 tab PO TID insulin glargine [Lantus Solostar U-100 Insulin] 100 unit/mL (3 mL) Insulin Pen 35 unit SUBCUT QHS metformin 500 mg Tablet 500 mg PO BID lidocaine [Lidocaine Pain Relief] 4 % Adhesive Patch,Medicated 1 patch TOPICAL QDAY PRN Rx Instructions: Apply to left knee one time a day for pain. Remove after 12 hours for 12 hour patch free period. metoprolol succinate [Toprol XL] 25 mg Tablet Extended Release 24 Hr 25 mg PO QDAY ezetimibe [Zetia] 10 mg Tablet 10 mg PO QHS Ozempic 0.25 mg or 0.5 mg(2 mg/1.5 mL) Pen Injector 0.25 mg SUBCUT QWEEK Rx Instructions: Inject 0.25mg SQ one time a day every Tuesday r/t DMT2 ondansetron HCl 4 mg tablet 4 mg PO Q8H PRN cefdinir 300 mg Capsule 300 mg PO BID rosuvastatin 10 mg Tablet 10 mg PO HS Eliquis 2.5 mg Tablet 2.5 mg PO BID Orders to Discharge Patient Discharge Orders: Discharge (Routine); Ordered 06/06/25 Ordered By: Drew Richey Follow ups/Referrals Follow ups/Referrals: JOSE DAVID MANCIA [Primary Care Provider, Unknown] Referral Note: Follow up as needed. Drew Richey [STAFF PHYSICIAN, Unknown] - 06/17/25 3:15 pm Instructions Instructions: Atherosclerosis, Poor Blood Flow (Peripheral Vascular Disease): What to Know, Endovascular Therapy for Peripheral Vascular Disease: What to Know After Stand Alone Forms: Find Help Web Site, Post Hospital Follow Up Care Print Language: MONGOLIAN
[2025-06-06 15:27] VITALS: BP 127/58; PULSE 74; RESP 18; TEMP 98.2; O2SAT 99
--- NOTE | 2025-06-07 07:06 | VAS ---
EXAM: LOWER EXT ARTERIAL-UNILATERAL HISTORY: CRITICAL ISCHEMIA RT FOOT; . COMPARISON: CTA dated 04/15/2025. TECHNIQUE: Ultrasound of right lower extremity arteries was performed, including the common femoral, superficial femoral and popliteal arteries. When clinically applicable, the deep femoral, posterior tibial and/or anterior tibial artery were also evaluated. Color flow and spectral doppler imaging was utilized. Subjective analysis from biswas-scale, waveform analysis and color flow imaging was used to estimate degree of stenosis. FINDINGS: RIGHT LOWER EXTREMITY: Proximal common femoral artery has a peak systolic velocity 64 cm/sec with a triphasic wave form. Proximal superficial femoral artery peak systolic velocity 82 cm/sec with a monophasic wave form. Mid and distal superficial femoral artery flow is absent. Absent popliteal artery flow. Proximal posterior tibial artery peak systolic velocity 23 cm/sec with a monophasic wave form. Mid posterior tibial artery peak systolic velocity 22 cm/sec with a monophasic wave form. Distal posterior tibial artery flow is absent. DPA flow is absent. IMPRESSION: Severe right lower extremity peripheral vascular disease with absent flow in the distal posterior tibial artery as well as the dorsalis pedis artery. THIS IS AN ELECTRONICALLY VERIFIED FINAL REPORT 06/07/2025 7:03 AM - Electronically signed by Jose Crocker MD
== END 2025-06-06 14:20 | DRG 279 ==
LOC: MED/SURG → ICU 05-30 12:08 → MED/SURG 06-03 17:54
PROVIDERS: ADMIT Surgery; ATTEND Surgery
DX: Z59.89 Other problems related to housing and economic circumstances; L97.319 Non-pressure chronic ulcer of right ankle with unspecified severity; I83.015 Varicose veins of right lower extremity with ulcer other part of foot; D64.89 Other specified anemias; I70.221 Atherosclerosis of native arteries of extremities with rest pain, right leg; Z79.4 Long term (current) use of insulin; R74.8 Abnormal levels of other serum enzymes; Z86.73 Personal history of transient ischemic attack (TIA), and cerebral infarction without residual deficits; I83.013 Varicose veins of right lower extremity with ulcer of ankle; R79.1 Abnormal coagulation profile; E11.65 Type 2 diabetes mellitus with hyperglycemia; Z79.01 Long term (current) use of anticoagulants; E87.1 Hypo-osmolality and hyponatremia; I10 Essential (primary) hypertension; I74.3 Embolism and thrombosis of arteries of the lower extremities; R26.89 Other abnormalities of gait and mobility; L89.619 Pressure ulcer of right heel, unspecified stage; E78.5 Hyperlipidemia, unspecified